=== PATIENT | female | born 1940 | race Hispanic/Latino ===

== ENCOUNTER 2022-05-01 10:09 | Inpatient (IN) | payer MEDICARE, MEDICAID ==
--- NOTE | 2022-05-01 11:55 | Emergency Department Report ---
ED General Adult HPI - General Chief complaint: Medical Clearance Stated complaint: DIALYSIS PORT DISLOGED PUI?: No Time Seen by Provider: 05/01/22 11:32 Source: family (2 sons and 1 daughter), EMS Mode of arrival: Stretcher Limitations: Other - History of Present Illness Initial comments: This is a pleasant 81-year-old female with history of dementia diabetes hypertension hyperlipidemia; who is on dialysis with dialysis catheter. Patient came in today by EMS with concerns of dialysis port dislodged. According to the family the patient likely pulled the dialysis to pull herself out of the chest. Family state that the patient is more confused than for her baseline. Per family, patient still produce urine. Has been a dialysis for the past 2 years. History of bilateral AV fistula clots in the past and previously on a nticoagulation but not currently; due to that, patient is now dialysis port dependent. Patient gets dialysis Friday, , and Friday. Unable to obtain review of systems due to patient confusion of the patient. Patient does not know what year or where she is at. Patient is knows her first name and last name. - Related Data Allergies Allergy/AdvReac Type Severity Reaction Status Date / Time No Known Allergies Allergy Verified 05/01/22 10:26 ED Review of Systems ROS: Stated complaint: DIALYSIS PORT DISLOGED Other details as noted in HPI Comment: Unobtainable due to pts medical conditions ED Past Medical Hx - Past Medical History Hx Hypertension: Yes Hx Diabetes: Yes ED Physical Exam - General Limitations: Altered Mental Status, Other General appearance: alert, in no apparent distress - Head Head exam: Present: atraumatic, normocephalic, normal inspection - Eye Eye exam: Present: normal appearance, PERRL, EOMI Pupils: Present: normal accommodation - ENT ENT exam: Present: normal exam, mucous membranes dry - Neck Neck exam: Present: normal inspection, full ROM - Respiratory Respiratory exam: Present: normal lung sounds bilaterally - Cardiovascular Cardiovascular Exam: Present: regular rate, normal rhythm, normal heart sounds - GI/Abdominal GI/Abdominal exam: Present: soft - Extremities Exam Extremities exam: Present: normal inspection, full ROM - Back Exam Back exam: Present: normal inspection, full ROM - Neurological Exam Neurological exam: Present: altered, CN II-XII intact - Skin Skin exam: Present: intact, normal color ED Course Vital Signs 05/01/22 10:21 Temperature 97.9 F Pulse Rate 82 Respiratory 14 Rate Blood Pressure 136/64 [Left] O2 Sat by Pulse 99 Oximetry - Reevaluation(s) Reevaluation #1: 05/01/22 13:30 EKG AT 1312: SINUS RHYTHM AT 91BPM; PVC W/ PROLONG TX INTERVAL. NO ST ELEVATION OR DEPRESSION; NO WELLEN WAVES. 05/01/22 15:52 Fecal occult blood test performed; the stool does not appear to be dark. Patient's anemia is likely secondary to anemia of chronic disease given the noemi ent is a dialysis patient. I will type and cross patient 1 unit and transfuse. As of now we are still pending urinalysis and also CT scan to ensure that there are no infectious etiology given patient is pleasantly altered. 05/01/22 18:[address] NEW (VASCULAR) WHO IS AWARE OF PATIENT AND WILL PUT DIALYSIS CATHETER TOMORROW. ED Medical Decision Making - Lab Data Result diagrams: 05/01/22 14:00 05/01/22 14:00 Critical care attestation.: If time is entered above; I have spent that time in minutes in the direct care of this critically ill patient, excluding procedure time. ED Disposition Clinical Impression: Anemia of chronic disease, Normocytic anemia, not due to blood loss, Complications, dialysis, catheter, mechanical, Urinary tract infection, Altered mental status, unspecified Disposition: ADMITTED INPATIENT Is pt being admited?: Yes Does the pt Need Aspirin: No Condition: Stable Referrals: MONA SHAH MD [Primary Care Provider] - 3-5 Days Time of Disposition: 18:30
--- NOTE | 2022-05-01 12:45 | Cat Scan Report ---
CT head/brain wo con INDICATION: ams. TECHNIQUE: CT head. All CT scans at this location are performed using CT dose reduction for ALARA by means of automated exposure control. COMPARISON: None. 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 Periventricular and centrum semiovale white matter hypoattenuation most consistent with sequela of chronic microvascular disease. Sarkar-white matter differentiation is maintained. No intracranial hemorrhage. No extra axial collection. No hydrocephalus. No herniation. Sinuses: Paranasal sinuses and mastoid air cells are essentially clear. Orbits: Globes are intact. Calvarium: No acute fracture. IMPRESSION: 1. No acute intracranial abnormality. Signer Name: Konrad Reed MD Signed: 05/01/2022 12:41 PM Workstation Name: [email or web address]
--- NOTE | 2022-05-01 13:15 | XRay Report ---
XR chest 1V ap INDICATION / CLINICAL INFORMATION: dialysis cather came off; patient altered. COMPARISON: None available. FINDINGS: SUPPORT DEVICES: None. HEART /PULMONARY VASCULATURE: No significant abnormality. LUNGS / PLEURA: Left basilar/retrocardiac opacity, may reflect atelectasis or infiltrate. No sizable pleural effusion. No pneumothorax. ADDITIONAL FINDINGS: No significant additional findings. IMPRESSION: Left basilar opacity, may reflect atelectasis or pneumonia. Signer Name: Ranjit Rossi MD Signed: 05/01/2022 1:11 PM Workstation Name: [id number]
[2022-05-01 14:33] LABS: Hemoglobin 6.3 gm/dl (10.1-14.3); Mean Corpuscular HGB Conc 33 % (30-34); Mean Corpuscular Volume 95 fl (79-97); Red Blood Count 2.01 M/mm3 (3.65-5.03)
[2022-05-01 14:35] LABS: Hematocrit 19.1 % (30.3-42.9); Platelet Count 71 K/mm3 (140-440); Red Cell Distribution Width 22.2 % (13.2-15.2)
[2022-05-01 14:46] LABS: Albumin 1.9 g/dL (3.9-5); BUN/Creatinine Ratio 5; Blood Urea Nitrogen 10 mg/dL (7-17); Calcium 8.3 mg/dL (8.4-10.2); Hemolysis Index 8
[2022-05-01 14:51] LABS: Alanine Aminotransferase < 5 units/L (7-56)
[2022-05-01 17:05] LABS: Amorphous Crystals,Urine Few; Bacteria,Urine 4+ /HPF (Negative); Hyaline Casts,Urine 2 /LPF
[2022-05-01 17:24] LABS: Color,Urine Yellow (Yellow)
--- NOTE | 2022-05-01 17:32 | Cat Scan Report ---
CT CHEST WITHOUT CONTRAST INDICATION / CLINICAL INFORMATION: LEFT BASILAR OPACITY, atelectasis VS PNA. TECHNIQUE: Axial CT images were obtained through the chest without contrast. All CT scans at this location are p erformed using CT dose reduction for ALARA by means of automated exposure control. COMPARISON: Same-day chest radiograph FINDINGS: THORACIC AORTA: Mild atherosclerotic calcification without acute abnormality. CORONARY ARTERY CALCIFICATION: Mild-moderate coronary artery calcifications. HEART: Mild cardiac enlargement. Trace pericardial effusion. MEDIASTINUM / PETTY: Mild diffuse mural thickening of the esophagus. LUNGS/PLEURA: Trace bibasilar pleural effusions. There are streaky airspace opacities within the left lower lobe and lingula, favored to reflect volume loss/scarring. No focal consolidative pneumonia. 5 mm right middle lobe nodule (series 2 image 64). No pneumothorax. ADDITIONAL CHEST FINDINGS: None. UPPER ABDOMEN: No acute findings. Multiple renal cysts and probable hyperdense cysts, incompletely ch aracterized. Gallbladder is surgically absent. SKELETAL SYSTEM: No acute abnormality. IMPRESSION: 1. Streaky airspace opacities of the left lower lobe and lingula, favored to reflect volume loss or s carring. No focal consolidative pneumonia. 2. Trace bibasilar pleural effusions. Component of mild CHF/volume overload suspected. 3. 5 mm right middle lobe nodule. If patient is high risk, consider further evaluation with CT in one year. 4. Mild diffuse mural thickening of the esophagus, may reflect esophagitis. Signer Name: Ranjit Rossi MD Signed: 05/01/2022 5:27 PM Workstation Name: [id number]
--- NOTE | 2022-05-01 18:19 | History and Physical Report ---
History of Present Illness Chief complaint: She probably pulled her catheter out History of present illness: 81 YO Female with Vascular Dementia, Cerebral Atherosclerosis, HTN, HLD, ESRD on HD(T,R,Sa) presents to ED for evaluation. Patient is confused with diminished cognition at the time my evaluation is unable to provide history. Patient history provided by EMS staff, ED staff, as well as patient family was at [facility] during exam and interview. As per family patient has experienced increased confusion and weakness and increased bedbound status over the past 1 month. Patient family noticed that patient dialysis catheter had been dislodged today. EMS was notified and upon arrival the patient was found to be in distress and subsequent transported to [facility] for further care and evaluation of the aforementioned symptoms. The patient was seen and evaluated in the emergency department. All lab and imaging studies reviewed. Patient was found to have UTI complicated by metabolic encephalopathy, end-stage renal disease in need of dialysis, as well as dislodgment of dialysis catheter. Vascular surgery team notified in ED. patient has diminished cognition but has a positive gag reflex and is able to protect her airway without difficulty. No prior admission for review. No medication listed at time of admission for reconciliation. Advanced care planning conducted in ED. Patient family denies fever, chills, chest pain, palpitation, productive cough, skin rash, recent contact, known exposure to COVID-19. Past History Past Medical History: GERD, hypertension, hyperlipidemia Past Surgical History: Other (Dialysis access) Social history: single. denies: smoking, alcohol abuse, prescription drug abuse Family history: diabetes, hypertension Medications and Allergies Allergies Allergy/AdvReac Type Severity Reaction Status Date / Time No Known Allergies Allergy Verified 05/01/22 10:26 Review of Systems ROS unobtainable: due to mental status (Hospitalist working on the after) Exam - Constitutional Vitals: Temp Pulse Resp BP Pulse Ox 97.9 F 82 14 136/64 99 05/01/22 10:21 05/01/22 10:21 05/01/22 10:21 05/01/22 10:21 05/01/22 10:21 General appearance: Present: mild distress, cachectic - EENT Eyes: Present: PERRL ENT: clear oral mucosa, hearing decreased - Neck Neck: Present: supple - Respiratory Respiratory effort: normal Respiratory: bilateral: diminished - Cardiovascular Heart Sounds: Present: S1 & S2. Absent: rub, click - Extremities Extremities: no ischemia Extremity abnormal: edema Peripheral Pulses: within normal limits - Abdominal General gastrointestinal: Present: soft, non-tender, non-distended, normal bowel sounds Female genitourinary: Present: normal - Integumentary Integumentary: Present: dry, clammy - Musculoskeletal Musculoskeletal: generalized weakness - Psychiatric Psychiatric: no appropriate mood/affect - Neurologic Neurologic: CNII-XII intact, no focal deficits, moves all extremities, no gait normal Results - Labs CBC & Chem 7: 05/01/22 14:00 05/01/22 14:00 Labs: Abnormal lab results 05/01/22 05/01/22 05/01/22 Range/Units 14:00 14:00 Unknown WBC 1.5 L* (4.5-11.0) K/mm3 RBC 2.01 L (3.65-5.03) M/mm3 Hgb 6.3 L (10.1-14.3) gm/dl Hct 19.1 L* (30.3-42.9) % RDW 22.2 H (13.2-15.2) % Plt Count 71 L (140-440) K/mm3 Sodium 136 L (137-145) mmol/L Potassium 3.4 L (3.6-5.0) mmol/L Creatinine 2.2 H (0.6-1.2) mg/dL Calcium 8.3 L (8.4-10.2) mg/dL ALT < 5 L (7-56) units/L Total Protein 5.1 L (6.3-8.2) g/dL Albumin 1.9 L (3.9-5) g/dL Urine WBC (Auto) 112.0 H (0.0-6.0) /HPF Assessment and Plan - Patient Problems (1) UTI (urinary tract infection) Current Visit: Yes Status: Acute Qualifiers: Encounter type: initial encounter Plan to address problem: CBC, IV antibiotic therapy, urinalysis. (2) Metabolic encephalopathy Current Visit: Yes Status: Acute Plan to address problem: Treat UTI, supportive care, dialysis as per renal team. (3) End stage renal disease Current Visit: Yes Status: Acute (4) Complications, dialysis, catheter, mechanical Current Visit: Yes Status: Acute Qualifiers: Encounter type: initial encounter Qualified Code(s): T82.49XA - Other complication of vascular dialysis catheter, initial encounter Plan to address problem: Vascular surgery team consulted. Patient pending surgical intervention in a.m. (5) Vascular dementia Current Visit: Yes Status: Acute Qualifiers: Dementia behavioral disturbance: without behavioral disturbance Qualified Code(s): F01.50 - Vascular dementia without behavioral disturbance Plan to address problem: Verbal prompting, verbal redirection, benzodiazepine therapy as clinically indicated. (6) Cerebral atherosclerosis Current Visit: Yes Status: Acute Plan to address problem: Risk factor reduction, antiplatelet therapy as clinically indicated. (7) Malnutrition Current Visit: Yes Status: Acute Qualifiers: Protein-calorie malnutrition severity: moderate Plan to address problem: Increase protein intake when awake and alert only, dietary supplementation. (8) Debility Current Visit: Yes Status: Acute Plan to address problem: Fall precautions, supportive care. (9) DVT prophylaxis Current Visit: Yes Status: Acute Plan to address problem: SCD to bilateral lower extremities while in bed (10) Advance care planning Current Visit: Yes Status: Acute Plan to address problem: Disease education conducted, care plan discussed, diagnoses discussed, prognosis discussed, patient is full code. Patient family knowledge understanding and agreed with care plan, +30 minutes. (11) Preventative health care Current Visit: Yes Status: Acute Plan to address problem: Patient family counseled regarding home safety precautions, risk factor reduction, outpatient follow-up with primary care physician for all age and risk factor appropriate screening test. +30 minutes.
[2022-05-01] MEDS ORDERED: ALBUTEROL 2.5 MG/3 ML NEBU IH PRN (18:21)
[2022-05-01] MEDS ORDERED: HYDROmorphone 0.5 MG/0.5 ML INJ IV PRN (18:21)
[2022-05-01] MEDS ORDERED: oxyCODONE /ACETAMINOPHEN 5-325MG TAB PO PRN (18:21)
[2022-05-01] MEDS ORDERED: ACETAMINOPHEN 325 MG TAB PO PRN (18:21)
[2022-05-01] MEDS ORDERED: ONDANSETRON 4 MG/2 ML INJ IV PRN (18:21)
[2022-05-01] MEDS: cefTRIAXone/NS 1 GM/50 ML 1 GM/50 ML BAG IV SCH (20:11)
[2022-05-02] MEDS ORDERED: SODIUM CHLORIDE 0.9% 500 ML 500 ML ONE (08:22)
[2022-05-02] MEDS ORDERED: HEPARIN/NS 5000 UNIT/500ML 500 ML IR ONE (08:48)
[2022-05-02] MEDS ORDERED: HEPARIN 10,000 UNITS/10 ML VIAL ONE (08:48)
[2022-05-02] MEDS ORDERED: LIDOCAINE (2%) 20 MG/1 ML VIAL 20 ML MDV INFILTRATI ONE (08:48)
--- NOTE | 2022-05-02 08:49 | Consultation ---
History of Present Illness - Reason for Consult Consult date: 05/02/22 Dialysis catheter pulled out - History of Present Illness Patient with a history of end-stage renal disease who is on maintenance dialysis. Patient has a history of prior catheter placement and most recently had a right tunneled chest wall catheter placed at [facility] 1 week ago. Per son, this was then pulled out by the patient. Patient presents to the ER with no catheter. Patient with dementia at baseline. Patient is also anemic. Past History Past Medical History: GERD, hypertension, hyperlipidemia Past Surgical History: Other (Dialysis access) Social history: single. denies: smoking, alcohol abuse, prescription drug abuse Family history: diabetes, hypertension Medications and Allergies Allergies Allergy/AdvReac Type Severity Reaction Status Date / Time No Known Allergies Allergy Verified 05/01/22 10:26 Active Meds: Active Medications Acetaminophen (Acetaminophen 325 Mg Tab) 650 mg PO Q4H PRN PRN Reason: Pain MILD(1-3)/Fever >100.5/FRIAS Albuterol (Albuterol 2.5 Mg/3 Ml Nebu) 2.5 mg IH Q4HRT PRN PRN Reason: Shortness Of Breath Hydromorphone HCl (Hydromorphone 0.5 Mg/0.5 Ml Inj) 0.5 mg IV Q13H PRN PRN Reason: Pain , Severe (7-10) Ceftriaxone Sodium (Rocephin/Ns 1 Gm/50 Ml) 1 gm in 50 mls @ 100 mls/hr IV Q24H JARETH; Protocol Last Admin: 05/01/22 20:11 Dose: 100 mls/hr Ondansetron HCl (Ondansetron 4 Mg/2 Ml Inj) 4 mg IV Q8H PRN PRN Reason: Nausea And Vomiting Oxycodone/Acetaminophen (Oxycodone /Acetaminophen 5-325mg Tab) 1 tab PO Q16H PRN PRN Reason: Pain, Moderate (4-6) Sodium Chloride (Sodium Chloride 0.9% 10 Ml Flush Syringe) [address] [facility] Last Admin: 05/02/22 01:32 Dose: 10 ml Sodium Chloride (Sodium Chloride 0.9% 10 Ml Flush Syringe) 10 ml IV PRN PRN PRN Reason: LINE FLUSH Review of Systems ROS unobtainable: due to mental status Exam - Constitutional Vitals: Temp Pulse Resp BP Pulse Ox 98.8 F 89 22 153/71 97 05/02/22 06:22 05/02/22 06:22 05/02/22 06:22 05/02/22 06:22 05/02/22 06:22 General appearance: Present: other (Demented) - EENT ENT: hearing intact - Neck Neck: Present: normal ROM - Respiratory Respiratory effort: normal - Abdominal Female genitourinary: Present: deferred - Rectal Rectal Exam: deferred - Musculoskeletal Musculoskeletal: other (Right chest wall catheter insertion site with scar) - Psychiatric Psychiatric: cooperative (Demented) Results - Labs CBC & Chem 7: 05/01/22 14:00 05/01/22 14:00 Labs: Abnormal lab results 05/01/22 05/01/22 05/01/22 Range/Units 14:00 14:00 Unknown WBC 1.5 L* (4.5-11.0) K/mm3 RBC 2.01 L (3.65-5.03) M/mm3 Hgb 6.3 L (10.1-14.3) gm/dl Hct 19.1 L* (30.3-42.9) % RDW 22.2 H (13.2-15.2) % Plt Count 71 L (140-440) K/mm3 Sodium 136 L (137-145) mmol/L Potassium 3.4 L (3.6-5.0) mmol/L Creatinine 2.2 H (0.6-1.2) mg/dL Calcium 8.3 L (8.4-10.2) mg/dL ALT < 5 L (7-56) units/L Total Protein 5.1 L (6.3-8.2) g/dL Albumin 1.9 L (3.9-5) g/dL Urine WBC (Auto) 112.0 H (0.0-6.0) /HPF Assessment and Plan Patient will be taken to the Collection Specialist for placement of dialysis catheter today. Per ER notes, patient with planned transfusion.
[2022-05-02] MEDS ORDERED: MIDAZOLAM 2 MG/2 ML INJ ONE (08:54)
--- NOTE | 2022-05-02 09:26 | Operative Report ---
Operative Report Operative Report: Exam: Ultrasound and fluoroscopic guided placement of tunneled hemodialysis catheter Clinical indication: Patient with a history of end-stage renal disease who is dialysis dependent. Most recent catheter was right chest wall 1 week ago which was pulled out by patient. Date: 05/02/2022 Procedure: Following an explanation of the risk, benefits and alternatives; written informed consent was obtained from the patient's son. Patient has baseline dementia. The patient was brought to the angiographic suite and placed in supine position on the examination table. Initial ultrasound evaluation of the neck demonstrated a patent internal jugular vein proximally with some mural thrombus as it extended distally. The patient's right chest wall and neck were prepped and draped in the usual sterile fashion. 2% lidocaine was used for anesthesia. Under ultrasound guidance, a 7 cm 21-gauge needle was advanced into the right internal jugular vein. A 0.018 guidewire was advanced centrally and without resistance. The needle was removed and a micro sheath inserted 2 to 3 cm into the vein. Contrast was injected. This demonstrates that the internal jugular vein is patent proximally with a tapered smooth narrowing distally which occludes. A 0.035 Glidewire was then advanced through the micro sheath and manipulated through the occluded internal jugular vein on the right. The guidewire was manipulated into the right atrium. Micro sheath was then advanced over the guidewire into the right atrium. Contrast was injected which demonstrates appropriate positioning with the prompt opacification of the right atrium and pulmonary outflow vessels. The guidewire was reinserted and the micro sheath exchanged for a vertebral catheter. With the vertebral catheter, the guidewire was then advanced in to the IVC for anchoring. An appropriate catheter exit site was chosen along the right lateral chest wall. Additional lidocaine was used for anesthesia at the catheter exit site and along the tunnel tract. A Bard 19 cm glidepath tunneled hemodialysis catheter was then tunneled antegrade from the catheter exit site to the venotomy site. Following serial dilation over the guidewire under fluoroscopy, a 15 Ivorian peel-away sheath was advanced over the guidewire centrally. The guidewire and trocar were removed. The catheter was inserted through the peel-away sheath with the tip of the catheter in the SVC. Both ports flushed and aspirated easily and were then locked with appropriate volumes of heparin. The venotomy was approximated using 3-0 Vicryl suture and Dermabond. 2-0 Ethilon was used to approximate the catheter exit site and to anchor the catheter. Dermabond was then also applied to the catheter exit site. Sterile dressings were applied. The patient tolerated the procedure well. The patient's O2 saturation fluctuated secondary to most likely positioning of the oxygen sensor on the patient's finger as the patient remained conversant throughout the entire case. At the conclusion of the case with repositioning of the oxygen saturation ration monitor, the patient's oxygen saturation is 100%. No sedation was utilized secondary to patient's altered mental status. Versed was used for anxiolysis. Impression: Ultrasound and fluoroscopic guided placement of 19 cm tunneled hemodialysis catheter via the right internal jugular vein.
[2022-05-02] MEDS ORDERED: SODIUM CHLORIDE 0.9% 500 ML 500 ML IV NR (10:15)
[2022-05-02] MEDS ORDERED: SODIUM CHLORIDE 0.9% 100 ML IV PRN (12:52)
[2022-05-02 15:08] LABS: Calcium 8.3 mg/dL (8.4-10.2)
[2022-05-02 15:18] LABS: Hepatitis B Surface Antigen Non-Reactive (Negative); Hepatitis C Virus Antibody Non-Reactive (NonReactive)
--- NOTE | 2022-05-02 16:24 | Progress Note ---
Assessment and Plan This is a 81-year-old woman with end-stage renal disease on hemodialysis TTS, hypertension, hyperlipidemia and vascular dementia who was brought in by EMS due to 1 month history of increased confusion and weakness. Family also reported 1 day history of HD catheter dislodgment. Nephrology was consulted for ESRD management. Patient was admitted for further evaluation and management. 05/02: Status post PermCath placed today, patient getting hemodialysis, patient was very agitated and placed on restraint. Continue to follow clinically, repeat labs in the morning. Family requested placement, discussed with case management. Assessment and plan -- UTI (urinary tract infection) IV antibiotic therapy, urinalysis. -- Acute Metabolic encephalopathy with underlying dementia and delirium Treat UTI, supportive care, dialysis as per renal team, supportive care Restraint as needed -- End stage renal disease Nephrology consulted, HD per nephrology, monitor BMP --Complications, dialysis, catheter, mechanical Vascular surgery team consulted. Status post new PermCath placement -- Vascular dementia Verbal prompting, verbal redirection, benzodiazepine therapy as clinically indicated. -- Cerebral atherosclerosis Risk factor reduction, antiplatelet therapy as clinically indicated. -- Malnutrition, moderate Increase protein intake when awake and alert only, dietary supplementation. --Chronic debility Fall precautions, supportive care. Family requested intermediate placement -- DVT prophylaxis SCD to bilateral lower extremities while in bed -- Full CODE STATUS Subjective Date of service: 05/02/22 Interval history: Patient seen and examined. Medical records and medication list reviewed. No acute event overnight noted by the RN. Patient very confused and agitated Status post new permacath placed today, getting HD now Discussed plan of care at bedside with patient's RN. Objective - Constitutional Vitals: Vital Signs - 12hr 05/02/22 05/02/22 05/02/22 04:30 04:40 04:50 Temperature Pulse Rate 83 85 79 Respiratory 21 20 20 Rate Blood Pressure 178/104 178/104 178/104 O2 Sat by Pulse 97 96 96 Oximetry 05/02/22 05/02/22 05/02/22 05:00 05:10 05:20 Temperature Pulse Rate 76 78 78 Respiratory 20 20 21 Rate Blood Pressure 178/104 178/104 178/104 O2 Sat by Pulse 98 99 98 Oximetry 05/02/22 05/02/22 05/02/22 05:30 05:40 05:50 Temperature Pulse Rate 88 90 83 Respiratory 22 25 H 22 Rate Blood Pressure 178/104 178/104 178/104 O2 Sat by Pulse 99 97 97 Oximetry 05/02/22 05/02/22 05/02/22 06:22 08:31 11:28 Temperature 98.8 F 98.5 F Pulse Rate 89 58 L Respiratory 22 22 Rate Blood Pressure 153/71 160/59 O2 Sat by Pulse 97 92 97 Oximetry 05/02/22 05/02/22 05/02/22 13:25 13:30 13:45 Temperature 98.3 F Pulse Rate 57 L 57 L 84 Respiratory 16 Rate Blood Pressure 98/74 98/74 162/71 O2 Sat by Pulse Oximetry 05/02/22 05/02/22 05/02/22 14:00 14:15 14:30 Temperature Pulse Rate 89 78 90 Respiratory Rate Blood Pressure 146/74 147/65 132/85 O2 Sat by Pulse Oximetry 05/02/22 05/02/22 05/02/22 14:45 15:00 15:15 Temperature 98.1 F 98.1 F Pulse Rate 87 82 72 Respiratory 16 16 Rate Blood Pressure 128/69 152/78 109/92 O2 Sat by Pulse 98 98 Oximetry 05/02/22 05/02/22 05/02/22 15:30 15:45 16:00 Temperature 98.1 F 98.0 F 98.0 F Pulse Rate 66 83 77 Respiratory 16 16 16 Rate Blood Pressure 123/67 149/88 146/11 O2 Sat by Pulse 98 98 98 Oximetry General appearance: Present: other (Malnourished elderly -[place] female appears to be very confused) - EENT Eyes: no scleral icterus, no conjunctival injection ENT: other (Does not follow command confused) Ears: bilateral: normal - Neck Neck: supple, normal ROM - Respiratory Respiratory effort: normal Respiratory: bilateral: CTA - Cardiovascular Rhythm: regular Heart Sounds: Present: S1 & S2. Absent: gallop, rub Extremities: pulses intact, No edema, normal color - Gastrointestinal General gastrointestinal: Present: soft, non-tender, non-distended, normal bowel sounds - Integumentary Integumentary: clear, warm, dry - Musculoskeletal Musculoskeletal: generalized weakness - Neurologic Neurologic: moves all extremities - Psychiatric Psychiatric: no appropriate mood/affect, no intact judgment & insight, no memory intact - Labs CBC & Chem 7: 05/02/22 23:31 05/05/22 11:01 Labs: Abnormal lab results 05/01/22 05/01/22 05/02/22 Range/Units 18:20 Unknown 14:30 Creatinine 1.4 H (0.6-1.2) mg/dL Glucose 123 H (65-100) mg/dL Calcium 8.3 L (8.4-10.2) mg/dL Urine WBC (Auto) 112.0 H (0.0-6.0) /HPF Crossmatch See Detail
--- NOTE | 2022-05-02 17:38 | Electrocardiograph Report ---
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
--- NOTE | 2022-05-02 20:39 | Consultation ---
History of Present Illness - Reason for Consult Consult date: 05/02/22 end stage renal disease - History of Present Illness This is a 81-year-old woman with end-stage renal disease on hemodialysis TTS, hypertension, hyperlipidemia and vascular dementia who was brought in by EMS due to 1 month history of increased confusion and weakness. Family also reported 1 day history of HD catheter dislodgment. Nephrology was consulted for ESRD management. Patient is altered and history has been obtained from chart. Past History Past Medical History: GERD, hypertension, hyperlipidemia Past Surgical History: Other (Dialysis access) Social history: single. denies: smoking, alcohol abuse, prescription drug abuse Family history: diabetes, hypertension Medications and Allergies Allergies Allergy/AdvReac Type Severity Reaction Status Date / Time morphine AdvReac "TREMBLING" Verified 05/02/22 10:21 Home Medications Medication Instructions Recorded Confirmed Last Taken Type AtorvaSTATin [Lipitor] 40 mg PO QHS 05/02/22 05/02/22 Unknown History Folic Acid [Folvite] 2 mg PO QDAY 05/02/22 05/02/22 Unknown History Metoprolol [Lopressor] 25 mg PO BID 05/02/22 05/02/22 Unknown History Mirtazapine 7.5 mg PO QDAY 05/02/22 05/02/22 Unknown History Parenteral Amino Acid 20% No.1 141 ml IV QDAY 05/02/22 05/02/22 Unknown History [Prosol] Active Meds: Active Medications Acetaminophen (Acetaminophen 325 Mg Tab) 650 mg PO Q4H PRN PRN Reason: Pain MILD(1-3)/Fever >100.5/FRIAS Albuterol (Albuterol 2.5 Mg/3 Ml Nebu) 2.5 mg IH Q4HRT PRN PRN Reason: Shortness Of Breath Hydromorphone HCl (Hydromorphone 0.5 Mg/0.5 Ml Inj) 0.5 mg IV Q13H PRN PRN Reason: Pain , Severe (7-10) Ceftriaxone Sodium (Rocephin/Ns 1 Gm/50 Ml) 1 gm in 50 mls @ 100 mls/hr IV Q24H JARETH; Protocol Last Admin: 05/01/22 20:11 Dose: 100 mls/hr Sodium Chloride (Nacl 0.9% 500 Ml) 500 mls @ 0 mls/hr IV ONCE NR Stop: 05/03/22 10:14 Sodium Chloride (Nacl 0.9%) 100 mls @ 999 mls/hr IV NICOLE PRN PRN Reason: Hypotension Ondansetron HCl (Ondansetron 4 Mg/2 Ml Inj) 4 mg IV Q8H PRN PRN Reason: Nausea And Vomiting Oxycodone/Acetaminophen (Oxycodone /Acetaminophen 5-325mg Tab) 1 tab PO Q16H PRN PRN Reason: Pain, Moderate (4-6) Sodium Chloride (Sodium Chloride 0.9% 10 Ml Flush Syringe) 10 ml IV BID JARETH Last Admin: 05/02/22 01:32 Dose: 10 ml Sodium Chloride (Sodium Chloride 0.9% 10 Ml Flush Syringe) 10 ml IV PRN PRN PRN Reason: LINE FLUSH Review of Systems ROS unobtainable: due to mental status Exam - Vital Signs Vital signs: Vital Signs Temp Pulse Resp BP Pulse Ox 97.9 F 82 14 136/64 99 05/01/22 10:21 05/01/22 10:21 05/01/22 10:21 05/01/22 10:21 05/01/22 10:21 - Physical Exam Narrative exam: Constitutional: no acute distress Head: NC/AT Neck: supple Lungs: clear to auscultation CV: RRR Abdomen: soft, non-tender, bowel sounds present Back: nontender Extremities: no edema, pulses WNL Skin: intact Neuro: Confused Results - Lab Results 05/01/22 14:00 05/02/22 14:30 Most recent lab results Calcium 8.3 mg/dL (8.4-10.2) L 05/02/22 14:30 Assessment and Plan End-stage renal disease on hemodialysis Anemia of CKD Hyperphosphatemia Hyperparathyroidism Status post PermCath placement by IR HD today for clearance Unclear if she makes any urine, will check 24-hour creatinine clearance if she does make urine Check P and PTH Transfuse for hemoglobin less than 7 Epogen with HD as needed Renally dose medications ESRD diet with 1.2-1. 4 g/kg/d protein intake
[2022-05-02] MEDS: cefTRIAXone/NS 1 GM/50 ML 1 GM/50 ML BAG IV SCH (23:02)
[2022-05-03] LABS: Hematocrit 24.9 % (30.3-42.9); Hemoglobin 8.3 gm/dl (10.1-14.3); Mean Corpuscular HGB Conc 33 % (30-34); Mean Corpuscular Volume 94 fl (79-97); Platelet Count 131 K/mm3 (140-440); Red Blood Count 2.66 M/mm3 (3.65-5.03); Red Cell Distribution Width 19.7 % (13.2-15.2)
[2022-05-03 01:58] LABS: Anisocytosis 1+; Basophils % (Manual) 0 % (0.0-1.8); Hypochromasia 2+; Total Cells Counted 100
[2022-05-03 01:59] LABS: Ovalocytes Few; Platelet Estimate Cons; Poikilocytosis 1+; Target Cells Rare
[2022-05-03] MEDS ORDERED: NON-FORMULARY EACH (Mirtazapine [Mirtazapine] 7.5 MG Tablet) PO SCH (10:00)
[2022-05-03] MEDS: METOPROLOL TARTRATE 25 MG TAB PO SCH ×2 (12:30→21:55)
[2022-05-03] MEDS: FOLIC ACID 1 MG TAB PO SCH (12:30)
--- NOTE | 2022-05-03 13:07 | Progress Note ---
Assessment and Plan This is a 81-year-old woman with end-stage renal disease on hemodialysis TTS, hypertension, hyperlipidemia and vascular dementia who was brought in by EMS due to 1 month history of increased confusion and weakness. Family also reported 1 day history of HD catheter dislodgment. Nephrology was consulted for ESRD management. Patient was admitted for further evaluation and management. 05/02: Status post PermCath placed today, patient getting hemodialysis, patient was very agitated and placed on restraint. Continue to follow clinically, repeat labs in the morning. Family requested placement, discussed with case management. 05/03: Discussed with family at the bedside, patient remains very confused and agitated, placed on restraint. We will also add Seroquel and as needed Haldol to relieve anxiety. Family requested placement -referral has sent out by case management. We will continue to follow Assessment and plan -- UTI (urinary tract infection) IV antibiotic therapy, urinalysis. -- Acute Metabolic encephalopathy with underlying dementia and delirium Treat UTI, supportive care, dialysis as per renal team, supportive care Restraint as needed. Placed on Seroquel and as needed Haldol -- End stage renal disease Nephrology consulted, HD per nephrology, monitor BMP --Complications, dialysis, catheter, mechanical Vascular surgery team consulted. Status post new PermCath placement -- Vascular dementia Verbal prompting, verbal redirection, benzodiazepine therapy as clinically in dicated. -- Cerebral atherosclerosis Risk factor reduction, antiplatelet therapy as clinically indicated. -- Malnutrition, moderate Increase protein intake when awake and alert only, dietary supplementation. --Chronic debility Fall precautions, supportive care. Family requested half-way placement -- DVT prophylaxis SCD to bilateral lower extremities while in bed -- Full CODE STATUS Subjective Date of service: 05/03/22 Interval history: Patient seen and examined. Medical records and medication list reviewed. No acute event overnight noted by the RN. Patient remains very confused and agitated and requiring restraints Updated plan of care with family at the bedside Discussed plan of care at bedside with patient's RN. Objective - Exam Narrative Exam: General appearance: Present: other (Malnourished elderly -Stateless female appears to be very confused) - EENT Eyes: no scleral icterus, no conjunctival injection ENT: other (Does not follow command confused) Ears: bilateral: normal - Neck Neck: supple, normal ROM - Respiratory Respiratory effort: normal Respiratory: bilateral: CTA - Cardiovascular Rhythm: regular Heart Sounds: Present: S1 & S2. Absent: gallop, rub Extremities: pulses intact, No edema, normal color - Gastrointestinal General gastrointestinal: Present: soft, non-tender, non-distended, normal bowel sounds - Integumentary Integumentary: clear, warm, dry - Musculoskeletal Musculoskeletal: generalized weakness - Neurologic Neurologic: moves all extremities - Psychiatric Psychiatric: no appropriate mood/affect, no intact judgment & insight, no memory intact - Constitutional Vitals: Vital Signs - 12hr 05/03/22 05/03/22 05/03/22 04:30 08:00 10:00 Temperature 98.5 F Pulse Rate 103 H Respiratory 16 Rate Blood Pressure 176/66 O2 Sat by Pulse 97 95 98 Oximetry 05/03/22 11:44 Temperature 98.9 F Pulse Rate 89 Respiratory 18 Rate Blood Pressure 125/66 O2 Sat by Pulse 97 Oximetry - Labs CBC & Chem 7: 05/02/22 23:31 05/05/22 11:01 Labs: Abnormal lab results 05/01/22 05/02/22 05/02/22 Range/Units 18:20 14:30 23:31 WBC 1.6 L* (4.5-11.0) K/mm3 RBC 2.66 L (3.65-5.03) M/mm3 Hgb 8.3 L (10.1-14.3) gm/dl Hct 24.9 L (30.3-42.9) % RDW 19.7 H (13.2-15.2) % Plt Count 131 L (140-440) K/mm3 Eosinophils % (Manual) 5.0 H (0.0-4.3) % Seg Neutrophils # Man 0.9 L (1.8-7.7) K/mm3 Lymphocytes # (Manual) 0.5 L (1.2-5.4) K/mm3 Creatinine 1.4 H (0.6-1.2) mg/dL Glucose 123 H (65-100) mg/dL Calcium 8.3 L (8.4-10.2) mg/dL Phosphorus (2.5-4.5) mg/dL PTH Intact (15-65) pg/mL Crossmatch See Detail 05/02/22 05/02/22 Range/Units 23:31 23:31 WBC (4.5-11.0) K/mm3 RBC (3.65-5.03) M/mm3 Hgb (10.1-14.3) gm/dl Hct (30.3-42.9) % RDW (13.2-15.2) % Plt Count (140-440) K/mm3 Eosinophils % (Manual) (0.0-4.3) % Seg Neutrophils # Man (1.8-7.7) K/mm3 Lymphocytes # (Manual) (1.2-5.4) K/mm3 Creatinine (0.6-1.2) mg/dL Glucose (65-100) mg/dL Calcium (8.4-10.2) mg/dL Phosphorus 1.60 L (2.5-4.5) mg/dL PTH Intact 304.4 H (15-65) pg/mL Crossmatch
--- NOTE | 2022-05-03 18:06 | Progress Note ---
Assessment and Plan End-stage renal disease on hemodialysis Anemia of CKD Hypophosphatemia Hyperparathyroidism Status post PermCath placement by IR 05/04 Continue HD TTS Check 24-hour creatinine clearance, order placed No indication for binders Transfuse for hemoglobin less than 7 Epogen with HD as needed Renally dose medications ESRD diet with 1.2-1. 4 g/kg/d protein intake Subjective Date of service: 05/03/22 Principal diagnosis: Catheter malfunction Interval history: Resting in bed Vitals, labs and I/os reviewed Interdisciplinary notes and consults reviewed Objective - Exam Narrative Exam: Constitutional: no acute distress Head: NC/AT Neck: supple Lungs: clear to auscultation CV: RRR Abdomen: soft, non-tender, bowel sounds present Back: nontender Extremities: no edema, pulses WNL Skin: intact Neuro: Confused - Vital Signs Vital signs: Vital Signs - 12hr 05/03/22 05/03/22 05/03/22 08:00 10:00 11:44 Temperature 98.9 F Pulse Rate 89 Respiratory 18 Rate Blood Pressure 125/66 O2 Sat by Pulse 95 98 97 Oximetry - Lab 05/02/22 23:31 05/03/22 13:15 Most recent lab results Calcium 9.0 mg/dL (8.4-10.2) 05/03/22 13:15 Phosphorus 1.60 mg/dL (2.5-4.5) L 05/02/22 23:31 Magnesium 1.60 mg/dL (1.7-2.3) L 05/03/22 13:15 Medications & Allergies - Medications Allergies/Adverse Reactions: Allergies morphine Adverse Reaction (Verified 05/02/22 10:21) "TREMBLING" Home Medications: Home Medications Medication Instructions Recorded Confirmed Last Taken Type AtorvaSTATin [Lipitor] 40 mg PO QHS 05/02/22 05/02/22 Unknown History Folic Acid [Folvite] 2 mg PO QDAY 05/02/22 05/02/22 Unknown History Metoprolol [Lopressor] 25 mg PO BID 05/02/22 05/02/22 Unknown History Mirtazapine 7.5 mg PO QDAY 05/02/22 05/02/22 Unknown History Parenteral Amino Acid 20% No.1 141 ml IV QDAY 05/02/22 05/02/22 Unknown History [Prosol] Active Medications: Generic Name Dose Route Start Last Admin Trade Name Freq PRN Reason Stop Dose Admin Acetaminophen 650 mg 05/01/22 18:21 Acetaminophen 325 Mg Tab PO Q4H PRN Pain MILD(1-3)/Fever >100.5/FRIAS Albuterol 2.5 mg 05/01/22 18:21 Albuterol 2.5 Mg/3 Ml Nebu IH Q4HRT PRN Shortness Of Breath Atorvastatin Calcium 40 mg 05/03/22 22:00 Atorvastatin 40 Mg Tab PO QHS JARETH Folic Acid 2 mg 05/03/22 10:00 05/03/22 12:30 Folic Acid 1 Mg Tab PO 2 mg QDAY JARETH Administration Hydromorphone HCl 0.5 mg 05/01/22 18:21 Hydromorphone 0.5 Mg/0.5 Ml Inj IV Q13H PRN Pain , Severe (7-10) Ceftriaxone Sodium 1 gm in 50 mls @ 100 mls/hr 05/01/22 20:00 05/02/22 23:02 Rocephin/Ns 1 Gm/50 Ml IV 100 mls/hr Q24H JARETH Administration Protocol Sodium Chloride 100 mls @ 999 mls/hr 05/02/22 12:52 Nacl 0.9% IV NICOLE PRN Hypotension Metoprolol Tartrate 25 mg 05/03/22 10:00 05/03/22 12:30 Metoprolol Tartrate 25 Mg Tab PO 25 mg BID JARETH Administration Mirtazapine 7.5 mg 05/03/22 22:00 Mirtazapine 15 Mg Tab PO QHS [facility] Ondansetron HCl 4 mg 05/01/22 18:21 Ondansetron 4 Mg/2 Ml Inj IV Q8H PRN Nausea And Vomiting Oxycodone/Acetaminophen 1 tab 05/01/22 18:21 Oxycodone /Acetaminophen 5-325mg Tab PO Q16H PRN Pain, Moderate (4-6) Quetiapine Fumarate 25 mg 05/03/22 22:00 Quetiapine 25 Mg Tab PO BID JARETH Sodium Chloride 10 ml 05/01/22 22:00 05/03/22 12:30 Sodium Chloride 0.9% 10 Ml Flush Syringe IV 10 ml BID JARETH Administration Sodium Chloride 10 ml 05/01/22 18:21 Sodium Chloride 0.9% 10 Ml Flush Syringe IV PRN PRN LINE FLUSH
[2022-05-03] MEDS: MIRTAZAPINE 15 MG TAB PO SCH (21:54)
[2022-05-03] MEDS: cefTRIAXone/NS 1 GM/50 ML 1 GM/50 ML BAG IV SCH (21:54)
[2022-05-03] MEDS: QUEtiapine 25 MG TAB PO SCH (21:55)
[2022-05-04] MEDS: QUEtiapine 25 MG TAB PO SCH ×2 (09:53→21:40)
[2022-05-04] MEDS: FOLIC ACID 1 MG TAB PO SCH (09:53)
[2022-05-04] MEDS: METOPROLOL TARTRATE 25 MG TAB PO SCH ×2 (09:53→22:22)
--- NOTE | 2022-05-04 11:36 | Progress Note ---
Assessment and Plan This is a 81-year-old woman with end-stage renal disease on hemodialysis TTS, hypertension, hyperlipidemia and vascular dementia who was brought in by EMS due to 1 month history of increased confusion and weakness. Family also reported 1 day history of HD catheter dislodgment. Nephrology was consulted for ESRD management. Patient was admitted for further evaluation and management. 05/02: Status post PermCath placed today, patient getting hemodialysis, patient was very agitated and placed on restraint. Continue to follow clinically, repeat labs in the morning. Family requested placement, discussed with case management. 05/03: Discussed with family at the bedside, patient remains very confused and agitated, placed on restraint. We will also add Seroquel and as needed Haldol to relieve anxiety. Family requested placement -referral has sent out by case management. We will continue to follow 05/04: Reduce Seroquel dose as patient appears sleepy, continue restraint as needed. Pending placement. Continue to follow BMP. Assessment and plan -- UTI (urinary tract infection) IV antibiotic therapy, urinalysis. -- Acute Metabolic encephalopathy with underlying dementia and delirium Treat UTI, supportive care, dialysis as per renal team, supportive care Restraint as needed. Placed on Seroquel and as needed Haldol -- End stage renal disease Nephrology consulted, HD per nephrology, monitor BMP --Complications, dialysis, catheter, mechanical Vascular surgery team consulted. Status post new PermCath placement -- Vascular dementia Verbal prompting, verbal redirection, benzodiazepine therapy as clinically indicated. -- Cerebral atherosclerosis Risk factor reduction, antiplatelet therapy as clinically indicated. -- Malnutrition, moderate Increase protein intake when awake and alert only, dietary supplementation. --Chronic debility Fall precautions, supportive care. Family requested intermediate placement -- DVT prophylaxis SCD to bilateral lower extremities while in bed -- Full CODE STATUS Subjective Date of service: 05/04/22 Principal diagnosis: Catheter malfunction Interval history: Patient seen and examined. Medical records and medication list reviewed. No acute event overnight noted by the RN. Patient remains very confused but more calm today Pending placement Objective - Exam Narrative Exam: General appearance: Present: other (Malnourished elderly -Lebanese female appears to be very confused) - EENT Eyes: no scleral icterus, no conjunctival injection ENT: other (Does not follow command confused) Ears: bilateral: normal - Neck Neck: supple, normal ROM - Respiratory Respiratory effort: normal Respiratory: bilateral: CTA - Cardiovascular Rhythm: regular Heart Sounds: Present: S1 & S2. Absent: gallop, rub Extremities: pulses intact, No edema, normal color - Gastrointestinal General gastrointestinal: Present: soft, non-tender, non-distended, normal bowel sounds - Integumentary Integumentary: clear, warm, dry - Musculoskeletal Musculoskeletal: generalized weakness - Neurologic Neurologic: moves all extremities - Psychiatric Psychiatric: no appropriate mood/affect, no intact judgment & insight, no memory intact - Constitutional Vitals: Vital Signs - 12hr 05/04/22 05/04/22 05/04/22 05:31 09:50 09:53 Temperature 99.1 F 97.6 F Pulse Rate 65 76 76 Respiratory 19 20 Rate Blood Pressure 152/54 123/61 Blood Pressure 123/61 [Left] O2 Sat by Pulse 97 99 Oximetry - Labs CBC & Chem 7: 05/02/22 23:31 05/05/22 11:01 Labs: Abnormal lab results 05/03/22 Range/Units 13:15 Creatinine 2.1 H (0.6-1.2) mg/dL Magnesium 1.60 L (1.7-2.3) mg/dL
--- NOTE | 2022-05-04 21:22 | Progress Note ---
Assessment and Plan End-stage renal disease on hemodialysis Anemia of CKD Hypophosphatemia Hyperparathyroidism Status post PermCath placement by IR 05/04 Continue HD TTS Check 24-hour creatinine clearance, order placed, not yet collected No indication for binders Transfuse for hemoglobin less than 7 Epogen with HD as needed Renally dose medications ESRD diet with 1.2-1. 4 g/kg/d protein intake Subjective Date of service: 05/04/22 Principal diagnosis: Catheter malfunction Interval history: Resting in bed Vitals, labs and I/os reviewed Interdisciplinary notes and consults reviewed Objective - Exam Narrative Exam: Constitutional: no acute distress Head: NC/AT Neck: supple Lungs: clear to auscultation CV: RRR Abdomen: soft, non-tender, bowel sounds present Back: nontender Extremities: no edema, pulses WNL Skin: intact Neuro: Confused - Vital Signs Vital signs: Vital Signs - 12hr 05/04/22 05/04/22 05/04/22 09:50 09:53 11:50 Temperature 97.6 F 98.3 F Pulse Rate 76 76 64 Respiratory 20 16 Rate Blood Pressure 123/61 123/45 Blood Pressure 123/61 [Left] O2 Sat by Pulse 99 99 Oximetry - Lab 05/02/22 23:31 05/03/22 13:15 Most recent lab results Calcium 9.0 mg/dL (8.4-10.2) 05/03/22 13:15 Phosphorus 1.60 mg/dL (2.5-4.5) L 05/02/22 23:31 Magnesium 1.60 mg/dL (1.7-2.3) L 05/03/22 13:15 Medications & Allergies - Medications Allergies/Adverse Reactions: Allergies morphine Adverse Reaction (Verified 05/02/22 10:21) "TREMBLING" Home Medications: Home Medications Medication Instructions Recorded Confirmed Last Taken Type AtorvaSTATin [Lipitor] 40 mg PO QHS 05/02/22 05/02/22 Unknown History Folic Acid [Folvite] 2 mg PO QDAY 05/02/22 05/02/22 Unknown History Metoprolol [Lopressor] 25 mg PO BID 05/02/22 05/02/22 Unknown History Mirtazapine 7.5 mg PO QDAY 05/02/22 05/02/22 Unknown History Parenteral Amino Acid 20% No.1 141 ml IV QDAY 05/02/22 05/02/22 Unknown History [Prosol] Active Medications: Generic Name Dose Route Start Last Admin Trade Name Freq PRN Reason Stop Dose Admin Acetaminophen 650 mg 05/01/22 18:21 Acetaminophen 325 Mg Tab PO Q4H PRN Pain MILD(1-3)/Fever >100.5/FRIAS Albuterol 2.5 mg 05/01/22 18:21 Albuterol 2.5 Mg/3 Ml Nebu IH Q4HRT PRN Shortness Of Breath Atorvastatin Calcium 40 mg 05/03/22 22:00 05/03/22 21:58 Atorvastatin 40 Mg Tab PO 40 mg QHS JARETH Administration Folic Acid 2 mg 05/03/22 10:00 05/04/22 09:53 Folic Acid 1 Mg Tab PO 2 mg QDAY JARETH Administration Hydromorphone HCl 0.5 mg 05/01/22 18:21 Hydromorphone 0.5 Mg/0.5 Ml Inj IV Q13H PRN Pain , Severe (7-10) Ceftriaxone Sodium 1 gm in 50 mls @ 100 mls/hr 05/01/22 20:00 05/03/22 21:54 Rocephin/Ns 1 Gm/50 Ml IV 100 mls/hr Q24H JARETH Administration Protocol Sodium Chloride 100 mls @ 999 mls/hr 05/02/22 12:52 Nacl 0.9% IV NICOLE PRN Hypotension Metoprolol Tartrate 25 mg 05/03/22 10:00 05/04/22 09:53 Metoprolol Tartrate 25 Mg Tab PO 25 mg BID JARETH Administration Mirtazapine 7.5 mg 05/03/22 22:00 05/03/22 21:54 Mirtazapine 15 Mg Tab PO 7.5 mg QHS JARETH Administration Ondansetron HCl 4 mg 05/01/22 18:21 Ondansetron 4 Mg/2 Ml Inj IV Q8H PRN Nausea And Vomiting Oxycodone/Acetaminophen 1 tab 05/01/22 18:21 Oxycodone /Acetaminophen 5-325mg Tab PO Q16H PRN Pain, Moderate (4-6) Quetiapine Fumarate 12.5 mg 05/04/22 22:00 Quetiapine 25 Mg Tab PO BID JARETH Sodium Chloride 10 ml 05/01/22 22:00 05/04/22 09:54 Sodium Chloride 0.9% 10 Ml Flush Syringe IV 10 ml BID JARETH Administration Sodium Chloride 10 ml 05/01/22 18:21 Sodium Chloride 0.9% 10 Ml Flush Syringe IV PRN PRN LINE FLUSH
[2022-05-04] MEDS: cefTRIAXone/NS 1 GM/50 ML 1 GM/50 ML BAG IV SCH (21:40)
[2022-05-04] MEDS: MIRTAZAPINE 15 MG TAB PO SCH (21:41)
[2022-05-05] MEDS: FOLIC ACID 1 MG TAB PO SCH (09:17)
[2022-05-05] MEDS: QUEtiapine 25 MG TAB PO SCH ×2 (09:17→21:13)
[2022-05-05] MEDS: METOPROLOL TARTRATE 25 MG TAB PO SCH ×2 (09:18→22:00)
[2022-05-05 11:29] LABS: Calcium 8.7 mg/dL (8.4-10.2)
--- NOTE | 2022-05-05 11:42 | Progress Note ---
Assessment and Plan This is a 81-year-old woman with end-stage renal disease on hemodialysis TTS, hypertension, hyperlipidemia and vascular dementia who was brought in by EMS due to 1 month history of increased confusion and weakness. Family also reported 1 day history of HD catheter dislodgment. Nephrology was consulted for ESRD management. Patient was admitted for further evaluation and management. 05/02: Status post PermCath placed today, patient getting hemodialysis, patient was very agitated and placed on restraint. Continue to follow clinically, repeat labs in the morning. Family requested placement, discussed with case management. 05/03: Discussed with family at the bedside, patient remains very confused and agitated, placed on restraint. We will also add Seroquel and as needed Haldol to relieve anxiety. Family requested placement -referral has sent out by case management. We will continue to follow 05/04: Reduce Seroquel dose as patient appears sleepy, continue restraint as needed. Pending placement. Continue to follow BMP. 05/05: clinically stable, pending placement. cont supportive care, HD per ranal team. cont abx total 7 days Assessment and plan -- UTI (urinary tract infection) IV antibiotic therapy, urinalysis. -- Acute Metabolic encephalopathy with underlying dementia and delirium Treat UTI, supportive care, dialysis as per renal team, supportive care Restraint as needed. Placed on Seroquel and as needed Haldol -- End stage renal disease Nephrology consulted, HD per nephrology, monitor BMP --Complications, dialysis, catheter, mechanical Vascular surgery team consulted. Status post new PermCath placement -- Vascular dementia Verbal prompting, verbal redirection, benzodiazepine therapy as clinically indicated. -- Cerebral atherosclerosis Risk factor reduction, antiplatelet therapy as clinically indicated. -- Malnutrition, moderate Increase protein intake when awake and alert only, dietary supplementation. --Chronic debility Fall precautions, supportive care. Family requested senior care placement -- DVT prophylaxis SCD to bilateral lower extremities while in bed -- Full CODE STATUS Subjective Date of service: 05/05/22 Principal diagnosis: Catheter malfunction Interval history: Patient seen and examined. Medical records and medication list reviewed. No acute event overnight noted by the RN. Patient remains very confused but more calm and cooperative today Pending placement Objective - Exam Narrative Exam: General appearance: Present: other (Malnourished elderly -[place] Islander female appears to be very confused) - EENT Eyes: no scleral icterus, no conjunctival injection ENT: other (Does not follow command confused) Ears: bilateral: normal - Neck Neck: supple, normal ROM - Respiratory Respiratory effort: normal Respiratory: bilateral: CTA - Cardiovascular Rhythm: regular Heart Sounds: Present: S1 & S2. Absent: gallop, rub Extremities: pulses intact, No edema, normal color - Gastrointestinal General gastrointestinal: Present: soft, non-tender, non-distended, normal bowel sounds - Integumentary Integumentary: clear, warm, dry - Musculoskeletal Musculoskeletal: generalized weakness - Neurologic Neurologic: moves all extremities - Psychiatric Psychiatric: no appropriate mood/affect, no intact judgment & insight, no memory intact - Constitutional Vitals: Vital Signs - 12hr 05/05/22 05/05/22 05/05/22 02:06 04:58 08:00 Temperature 98.2 F 98.3 F Pulse Rate 63 63 Respiratory 18 20 Rate Blood Pressure 124/52 155/58 Blood Pressure [Left] O2 Sat by Pulse 98 99 98 Oximetry 05/05/22 05/05/22 09:16 09:18 Temperature 98 F Pulse Rate 70 70 Respiratory 20 Rate Blood Pressure 127/58 Blood Pressure 127/58 [Left] O2 Sat by Pulse 97 Oximetry - Labs CBC & Chem 7: 05/06/22 05:36 05/06/22 05:36 Labs: Abnormal lab results 05/05/22 Range/Units 11:01 BUN 22 H (7-17) mg/dL Creatinine 3.5 H D (0.6-1.2) mg/dL
--- NOTE | 2022-05-05 18:21 | Progress Note ---
Assessment and Plan End-stage renal disease on hemodialysis Anemia of CKD Hypophosphatemia Hyperparathyroidism Status post PermCath placement by IR 05/04 Continue HD TTS Creatinine value noted, ordered 24 hour crcl but urine volume very low and not valid for evaluation No indication for binders Transfuse for hemoglobin less than 7 Epogen with HD as needed Renally dose medications ESRD diet with 1.2-1. 4 g/kg/d protein intake Subjective Date of service: 05/05/22 Principal diagnosis: Catheter malfunction Interval history: Resting in bed Vitals, labs and I/os reviewed Interdisciplinary notes and consults reviewed Objective - Exam Narrative Exam: Constitutional: no acute distress Head: NC/AT Neck: supple Lungs: clear to auscultation CV: RRR Abdomen: soft, non-tender, bowel sounds present Back: nontender Extremities: no edema, pulses WNL Skin: intact Neuro: Confused - Vital Signs Vital signs: Vital Signs - 12hr 05/05/22 05/05/22 05/05/22 08:00 09:16 09:18 Temperature 98 F Pulse Rate 70 70 Respiratory 20 Rate Blood Pressure 127/58 Blood Pressure 127/58 [Left] O2 Sat by Pulse 98 97 Oximetry 05/05/22 05/05/22 12:43 15:57 Temperature 98.0 F 98.4 F Pulse Rate 64 81 Respiratory 16 15 Rate Blood Pressure 103/83 127/56 Blood Pressure [Left] O2 Sat by Pulse 98 100 Oximetry - Lab 05/02/22 23:31 05/05/22 11:01 Most recent lab results Calcium 8.7 mg/dL (8.4-10.2) 05/05/22 11:01 Phosphorus 1.60 mg/dL (2.5-4.5) L 05/02/22 23:31 Magnesium 1.60 mg/dL (1.7-2.3) L 05/03/22 13:15 Medications & Allergies - Medications Allergies/Adverse Reactions: Allergies morphine Adverse Reaction (Verified 05/02/22 10:21) "TREMBLING" Home Medications: Home Medications Medication Instructions Recorded Confirmed Last Taken Type AtorvaSTATin [Lipitor] 40 mg PO QHS 05/02/22 05/02/22 Unknown History Folic Acid [Folvite] 2 mg PO QDAY 05/02/22 05/02/22 Unknown History Metoprolol [Lopressor] 25 mg PO BID 05/02/22 05/02/22 Unknown History Mirtazapine 7.5 mg PO QDAY 05/02/22 05/02/22 Unknown History Parenteral Amino Acid 20% No.1 141 ml IV QDAY 05/02/22 05/02/22 Unknown History [Prosol] Active Medications: Generic Name Dose Route Start Last Admin Trade Name Freq PRN Reason Stop Dose Admin Acetaminophen 650 mg 05/01/22 18:21 Acetaminophen 325 Mg Tab PO Q4H PRN Pain MILD(1-3)/Fever >100.5/FRIAS Albuterol 2.5 mg 05/01/22 18:21 Albuterol 2.5 Mg/3 Ml Nebu IH Q4HRT PRN Shortness Of Breath Atorvastatin Calcium 40 mg 05/03/22 22:00 05/04/22 21:40 Atorvastatin 40 Mg Tab PO 40 mg QHS JARETH Administration Folic Acid 2 mg 05/03/22 10:00 05/05/22 09:17 Folic Acid 1 Mg Tab PO 2 mg QDAY JARETH Administration Hydromorphone HCl 0.5 mg 05/01/22 18:21 Hydromorphone 0.5 Mg/0.5 Ml Inj IV Q13H PRN Pain , Severe (7-10) Ceftriaxone Sodium 1 gm in 50 mls @ 100 mls/hr 05/01/22 20:00 05/05/22 03:22 Rocephin/Ns 1 Gm/50 Ml IV Infused Q24H JARETH Infusion Protocol Sodium Chloride 100 mls @ 999 mls/hr 05/02/22 12:52 Nacl 0.9% IV NICOLE PRN Hypotension Metoprolol Tartrate 25 mg 05/03/22 10:00 05/05/22 09:18 Metoprolol Tartrate 25 Mg Tab PO 25 mg BID JARETH Administration Mirtazapine 7.5 mg 05/03/22 22:00 05/04/22 21:41 Mirtazapine 15 Mg Tab PO 7.5 mg QHS JARETH Administration Ondansetron HCl 4 mg 05/01/22 18:21 Ondansetron 4 Mg/2 Ml Inj IV Q8H PRN Nausea And Vomiting Oxycodone/Acetaminophen 1 tab 05/01/22 18:21 Oxycodone /Acetaminophen 5-325mg Tab PO Q16H PRN Pain, Moderate (4-6) Quetiapine Fumarate 12.5 mg 05/04/22 22:00 05/05/22 09:17 Quetiapine 25 Mg Tab PO 12.5 mg BID JARETH Administration Sodium Chloride 10 ml 05/01/22 22:00 05/05/22 09:18 Sodium Chloride 0.9% 10 Ml Flush Syringe IV 10 ml BID JARETH Administration Sodium Chloride 10 ml 05/01/22 18:21 Sodium Chloride 0.9% 10 Ml Flush Syringe IV PRN PRN LINE FLUSH
[2022-05-05] MEDS: cefTRIAXone/NS 1 GM/50 ML 1 GM/50 ML BAG IV SCH (20:51)
[2022-05-05] MEDS: MIRTAZAPINE 15 MG TAB PO SCH (21:12)
[2022-05-06 08:06] LABS: Calcium 8.4 mg/dL (8.4-10.2)
[2022-05-06] MEDS: QUEtiapine 25 MG TAB PO SCH ×2 (09:40→21:07)
[2022-05-06] MEDS: METOPROLOL TARTRATE 25 MG TAB PO SCH ×2 (09:40→23:47)
[2022-05-06] MEDS: FOLIC ACID 1 MG TAB PO SCH (09:40)
[2022-05-06 09:48] LABS: Eosinophils # (Auto) 0.1 K/mm3 (0.0-0.4); Eosinophils % (Auto) 7.6 % (0.0-4.3); Hematocrit 23.6 % (30.3-42.9); Hemoglobin 7.7 gm/dl (10.1-14.3); Mean Corpuscular HGB Conc 33 % (30-34); Mean Corpuscular Volume 93 fl (79-97); Platelet Count 121 K/mm3 (140-440); Red Blood Count 2.55 M/mm3 (3.65-5.03); Red Cell Distribution Width 19.4 % (13.2-15.2)
--- NOTE | 2022-05-06 14:47 | Progress Note ---
Assessment and Plan This is a 81-year-old woman with end-stage renal disease on hemodialysis TTS, hypertension, hyperlipidemia and vascular dementia who was brought in by EMS due to 1 month history of increased confusion and weakness. Family also reported 1 day history of HD catheter dislodgment. Nephrology was consulted for ESRD management. Patient was admitted for further evaluation and management. 05/02: Status post PermCath placed today, patient getting hemodialysis, patient was very agitated and placed on restraint. Continue to follow clinically, repeat labs in the morning. Family requested placement, discussed with case management. 05/03: Discussed with family at the bedside, patient remains very confused and agitated, placed on restraint. We will also add Seroquel and as needed Haldol to relieve anxiety. Family requested placement -referral has sent out by case management. We will continue to follow 05/04: Reduce Seroquel dose as patient appears sleepy, continue restraint as needed. Pending placement. Continue to follow BMP. 05/05: clinically stable, pending placement. cont supportive care, HD per ranal team. cont abx total 7 days 05/06: clinically stable. last dose of abx tomorrow. follow clinically. discussed with CM and RN. HD per renal. Assessment and plan -- UTI (urinary tract infection) IV antibiotic therapy, urinalysis. -- Acute Metabolic encephalopathy with underlying dementia and delirium Treat UTI, supportive care, dialysis as per renal team, supportive care Restraint as needed. Placed on Seroquel and as needed Haldol -- End stage renal disease Nephrology consulted, HD per nephrology, monitor BMP --Complications, dialysis, catheter, mechanical Vascular surgery team consulted. Status post new PermCath placement -- Vascular dementia Verbal prompting, verbal redirection, benzodiazepine therapy as clinically indicated. -- Cerebral atherosclerosis Risk factor reduction, antiplatelet therapy as clinically indicated. -- Malnutrition, moderate Increase protein intake when awake and alert only, dietary supplementation. --Chronic debility Fall precautions, supportive care. Family requested detention placement -- DVT prophylaxis SCD to bilateral lower extremities while in bed -- Full CODE STATUS Subjective Date of service: 05/06/22 Principal diagnosis: Catheter malfunction Interval history: Patient seen and examined. Medical records and medication list reviewed. No acute event overnight noted by the RN. Patient remains very confused but more calm and cooperative today Pending placement,no change clinically Family declined hospice and requested placement Objective - Exam Narrative Exam: General appearance: Present: other (Malnourished elderly -[place]ian female appears to be very confused) - EENT Eyes: no scleral icterus, no conjunctival injection ENT: other (Does not follow command confused) Ears: bilateral: normal - Neck Neck: supple, normal ROM - Respiratory Respiratory effort: normal Respiratory: bilateral: CTA - Cardiovascular Rhythm: regular Heart Sounds: Present: S1 & S2. Absent: gallop, rub Extremities: pulses intact, No edema, normal color - Gastrointestinal General gastrointestinal: Present: soft, non-tender, non-distended, normal bowel sounds - Integumentary Integumentary: clear, warm, dry - Musculoskeletal Musculoskeletal: generalized weakness - Neurologic Neurologic: moves all extremities - Psychiatric Psychiatric: no appropriate mood/affect, no intact judgment & insight, no memory intact - Constitutional Vitals: Vital Signs - 12hr 05/06/22 05/06/22 05/06/22 04:33 10:00 12:56 Temperature 98.0 F 98.2 F Pulse Rate 48 L 68 Respiratory 18 20 Rate Blood Pressure 154/74 Blood Pressure 121/50 [Left] O2 Sat by Pulse 100 100 100 Oximetry - Labs CBC & Chem 7: 05/06/22 05:36 05/06/22 05:36 Labs: Abnormal lab results 05/06/22 05/06/22 Range/Units 05:36 05:36 WBC 1.8 L* (4.5-11.0) K/mm3 RBC 2.55 L (3.65-5.03) M/mm3 Hgb 7.7 L (10.1-14.3) gm/dl Hct 23.6 L (30.3-42.9) % RDW 19.4 H (13.2-15.2) % Plt Count 121 L (140-440) K/mm3 Eos % (Auto) 7.6 H (0.0-4.3) % Seg Neutrophils # 0.7 L (1.8-7.7) K/mm3 Potassium 3.4 L (3.6-5.0) mmol/L BUN 25 H (7-17) mg/dL Creatinine 3.8 H (0.6-1.2) mg/dL
--- NOTE | 2022-05-06 18:35 | Progress Note ---
Assessment and Plan Assessment/Plan: End-stage renal disease on hemodialysis Anemia of CKD Hypophosphatemia Hyperparathyroidism Urinary Tract Infection Acute Metabolic Encephalopathy Vascular Dementia Malnutrition Chronic Debility Leukopenia Status post PermCath placement per IR 05/04 Continue HD TTS or prn, no need for HD today per labs/volume No indication for binders Transfuse for hemoglobin less than 7 Epogen with HD as needed Renally dose medications ESRD diet with 1.2-1. 4 g/kg/d protein intake Subjective Date of service: 05/06/22 Principal diagnosis: Catheter malfunction Interval history: Resting in bed No acute events noted Vitals, labs and I/os reviewed Interdisciplinary notes and consults reviewed Objective - Exam Narrative Exam: Constitutional: no acute distress Head: NC/AT Neck: supple Lungs: clear to auscultation CV: RRR Abdomen: soft, non-tender, bowel sounds present Back: nontender Extremities: no edema, pulses WNL Skin: intact Neuro: Confused - Vital Signs Vital signs: Vital Signs - 12hr 05/06/22 05/06/22 10:00 12:56 Temperature 98.2 F Pulse Rate 68 Respiratory 20 Rate Blood Pressure 121/50 [Left] O2 Sat by Pulse 100 100 Oximetry - Lab 05/06/22 05:36 05/06/22 05:36 Most recent lab results Calcium 8.4 mg/dL (8.4-10.2) 05/06/22 05:36 Phosphorus 1.60 mg/dL (2.5-4.5) L 05/02/22 23:31 Magnesium 1.60 mg/dL (1.7-2.3) L 05/03/22 13:15 Medications & Allergies - Medications Allergies/Adverse Reactions: Allergies morphine Adverse Reaction (Verified 05/02/22 10:21) "TREMBLING" Home Medications: Home Medications Medication Instructions Recorded Confirmed Last Taken Type AtorvaSTATin [Lipitor] 40 mg PO QHS 05/02/22 05/02/22 Unknown History Folic Acid [Folvite] 2 mg PO QDAY 05/02/22 05/02/22 Unknown History Metoprolol [Lopressor] 25 mg PO BID 05/02/22 05/02/22 Unknown History Mirtazapine 7.5 mg PO QDAY 05/02/22 05/02/22 Unknown History Parenteral Amino Acid 20% No.1 141 ml IV QDAY 05/02/22 05/02/22 Unknown History [Prosol] Active Medications: Generic Name Dose Route Start Last Admin Trade Name Freq PRN Reason Stop Dose Admin Acetaminophen 650 mg 05/01/22 18:21 Acetaminophen 325 Mg Tab PO Q4H PRN Pain MILD(1-3)/Fever >100.5/FRIAS Albuterol 2.5 mg 05/01/22 18:21 Albuterol 2.5 Mg/3 Ml Nebu IH Q4HRT PRN Shortness Of Breath Atorvastatin Calcium 40 mg 05/03/22 22:00 05/05/22 21:12 Atorvastatin 40 Mg Tab PO 40 mg QHS JARETH Administration Folic Acid 2 mg 05/03/22 10:00 05/06/22 09:40 Folic Acid 1 Mg Tab PO 2 mg QDAY JARETH Administration Hydromorphone HCl 0.5 mg 05/01/22 18:21 Hydromorphone 0.5 Mg/0.5 Ml Inj IV Q13H PRN Pain , Severe (7-10) Ceftriaxone Sodium 1 gm in 50 mls @ 100 mls/hr 05/01/22 20:00 05/06/22 00:57 Rocephin/Ns 1 Gm/50 Ml IV 05/07/22 20:29 Infused Q24H JARETH Infusion Protocol Sodium Chloride 100 mls @ 999 mls/hr 05/02/22 12:52 Nacl 0.9% IV NICOLE PRN Hypotension Metoprolol Tartrate 25 mg 05/03/22 10:00 05/06/22 09:40 Metoprolol Tartrate 25 Mg Tab PO 25 mg BID JARETH Administration Mirtazapine 7.5 mg 05/03/22 22:00 05/05/22 21:12 Mirtazapine 15 Mg Tab PO 7.5 mg QHS JARETH Administration Ondansetron HCl 4 mg 05/01/22 18:21 Ondansetron 4 Mg/2 Ml Inj IV Q8H PRN Nausea And Vomiting Oxycodone/Acetaminophen 1 tab 05/01/22 18:21 Oxycodone /Acetaminophen 5-325mg Tab PO Q16H PRN Pain, Moderate (4-6) Quetiapine Fumarate 12.5 mg 05/04/22 22:00 05/06/22 09:40 Quetiapine 25 Mg Tab PO 12.5 mg BID JARETH Administration Sodium Chloride 10 ml 05/01/22 22:00 05/06/22 09:41 Sodium Chloride 0.9% 10 Ml Flush Syringe IV 10 ml BID JARETH Administration Sodium Chloride 10 ml 05/01/22 18:21 Sodium Chloride 0.9% 10 Ml Flush Syringe IV PRN PRN LINE FLUSH
[2022-05-06] MEDS: cefTRIAXone/NS 1 GM/50 ML 1 GM/50 ML BAG IV SCH (21:06)
[2022-05-06] MEDS: MIRTAZAPINE 15 MG TAB PO SCH (21:08)
[2022-05-07] MEDS: METOPROLOL TARTRATE 25 MG TAB PO SCH ×2 (09:14→21:14)
[2022-05-07] MEDS: QUEtiapine 25 MG TAB PO SCH ×2 (09:14→21:14)
[2022-05-07] MEDS: FOLIC ACID 1 MG TAB PO SCH (09:14)
--- NOTE | 2022-05-07 09:42 | Progress Note ---
Assessment and Plan Assessment/Plan: End-stage renal disease on hemodialysis Anemia of CKD Hypophosphatemia Hyperparathyroidism Urinary Tract Infection Acute Metabolic Encephalopathy Vascular Dementia Malnutrition Chronic Debility Leukopenia Status post PermCath placement per IR 05/04 Continue HD TTS or prn, due today No indication for binders Transfuse for hemoglobin less than 7 Epogen with HD as needed Renally dose medications ESRD diet with 1.2-1. 4 g/kg/d protein intake Subjective Date of service: 05/07/22 Principal diagnosis: Catheter malfunction Interval history: Resting in bed No acute events noted Vitals, labs and I/os reviewed Interdisciplinary notes and consults reviewed Objective - Exam Narrative Exam: Constitutional: no acute distress Head: NC/AT Neck: supple Lungs: clear to auscultation CV: RRR Abdomen: soft, non-tender, bowel sounds present Back: nontender Extremities: no edema, pulses WNL Skin: intact Neuro: Confused - Vital Signs Vital signs: Vital Signs - 12hr 05/06/22 05/07/22 22:00 04:53 Temperature 98.7 F Pulse Rate 63 Respiratory 16 Rate Blood Pressure 143/65 O2 Sat by Pulse 100 100 Oximetry - Lab 05/06/22 05:36 05/06/22 05:36 Most recent lab results Calcium 8.4 mg/dL (8.4-10.2) 05/06/22 05:36 Phosphorus 1.60 mg/dL (2.5-4.5) L 05/02/22 23:31 Magnesium 1.60 mg/dL (1.7-2.3) L 05/03/22 13:15 Medications & Allergies - Medications Allergies/Adverse Reactions: Allergies morphine Adverse Reaction (Verified 05/02/22 10:21) "TREMBLING" Home Medications: Home Medications Medication Instructions Recorded Confirmed Last Taken Type AtorvaSTATin [Lipitor] 40 mg PO QHS 05/02/22 05/02/22 Unknown History Folic Acid [Folvite] 2 mg PO QDAY 05/02/22 05/02/22 Unknown History Metoprolol [Lopressor] 25 mg PO BID 05/02/22 05/02/22 Unknown History Mirtazapine 7.5 mg PO QDAY 05/02/22 05/02/22 Unknown History Parenteral Amino Acid 20% No.1 141 ml IV QDAY 05/02/22 05/02/22 Unknown History [Prosol] Active Medications: Generic Name Dose Route Start Last Admin Trade Name Freq PRN Reason Stop Dose Admin Acetaminophen 650 mg 05/01/22 18:21 Acetaminophen 325 Mg Tab PO Q4H PRN Pain MILD(1-3)/Fever >100.5/FRIAS Albuterol 2.5 mg 05/01/22 18:21 Albuterol 2.5 Mg/3 Ml Nebu IH Q4HRT PRN Shortness Of Breath Atorvastatin Calcium 40 mg 05/03/22 22:00 05/06/22 21:07 Atorvastatin 40 Mg Tab PO 40 mg QHS JARETH Administration Folic Acid 2 mg 05/03/22 10:00 05/07/22 09:14 Folic Acid 1 Mg Tab PO 2 mg QDAY JARETH Administration Hydromorphone HCl 0.5 mg 05/01/22 18:21 Hydromorphone 0.5 Mg/0.5 Ml Inj IV Q13H PRN Pain , Severe (7-10) Ceftriaxone Sodium 1 gm in 50 mls @ 100 mls/hr 05/01/22 20:00 05/06/22 21:06 Rocephin/Ns 1 Gm/50 Ml IV 05/07/22 20:29 100 mls/hr Q24H JARETH Administration Protocol Sodium Chloride 100 mls @ 999 mls/hr 05/02/22 12:52 Nacl 0.9% IV NICOLE PRN Hypotension Metoprolol Tartrate 25 mg 05/03/22 10:00 05/07/22 09:14 Metoprolol Tartrate 25 Mg Tab PO 25 mg BID JARETH Administration Mirtazapine 7.5 mg 05/03/22 22:00 05/06/22 21:08 Mirtazapine 15 Mg Tab PO 7.5 mg QHS JARETH Administration Ondansetron HCl 4 mg 05/01/22 18:21 Ondansetron 4 Mg/2 Ml Inj IV Q8H PRN Nausea And Vomiting Oxycodone/Acetaminophen 1 tab 05/01/22 18:21 Oxycodone /Acetaminophen 5-325mg Tab PO Q16H PRN Pain, Moderate (4-6) Quetiapine Fumarate 12.5 mg 05/04/22 22:00 05/07/22 09:14 Quetiapine 25 Mg Tab PO 12.5 mg BID JARETH Administration Sodium Chloride 10 ml 05/01/22 22:00 05/07/22 09:14 Sodium Chloride 0.9% 10 Ml Flush Syringe IV 10 ml BID JARETH Administration Sodium Chloride 10 ml 05/01/22 18:21 05/06/22 21:11 Sodium Chloride 0.9% 10 Ml Flush Syringe IV 10 ml PRN PRN Administration LINE FLUSH
--- NOTE | 2022-05-07 17:26 | Discharge Summary ---
Providers - Providers Date of Admission: 05/01/22 18:21 Date of discharge: 05/07/22 Attending physician: CHAPARRO BELL MD 05/01/22 18:27 Consult to Physician [CONS] Stat Comment: Consulting Provider: DARCY NAIR Physician Instructions: Reason For Exam: DIALYSIS CATHETER CAME OUT 05/02/22 11:48 Consult to Physician [CONS] Routine Comment: Consulting Provider: MEERA HE Physician Instructions: Reason For Exam: esrd Primary care physician: MONA SHAH Hospitalization Reason for admission: Dislodged dialysis catheter, acute metabolic e ncephalopathy Condition: Stable Pertinent studies: Reviewed. Procedures: Placement of permacath by vascular surgery Hospital course: The patient is an 81 YO Female with Vascular Dementia, Cerebral Atherosclerosis, HTN, HLD, ESRD on HD(T,R,Sa) presents to ED for evaluation. Patient is confused with diminished cognition at the time my evaluation is unable to provide history. Patient history provided by EMS staff, ED staff, as well as patient family was at bedside during exam and interview. As per family patient has experienced increased confusion and weakness and increased bedbound status over the past 1 month. Patient family noticed that patient dialysis catheter had been dislodged today. EMS was notified and upon arrival the patient was found to be in distress and subsequent transported to [facility] for further care and evaluation of the aforementioned symptoms. The patient was seen and evaluated in the emergency department. All lab and imaging studies reviewed. Patient was found to have UTI complicated by metabolic encephalopathy, end-stage renal disease in need of dialysis, as well as dislodgment of dialysis catheter. Vascular surgery team notified in ED. patient has diminished cognition but has a positive gag reflex and is able to protect her airway without difficulty. Patient got her permacath replaced on 05/02/2022. Afterwards, family discussion was had concerning placement. Patient's family requested placement and referrals were sent out via case management. Patient's encephalopathy has since improved with treatment of her acute cystitis. Patient has continued to receive hemodialysis via nephrology consult. Patient is medically clear for discharge. Disposition: HOME / SELF CARE / HOMELESS Final Discharge Diagnosis (Prints w/discharge instructions): Acute metabolic encephalopathy, acute cystitis without hematuria, ESRD on hemodialysis, dislodged dialysis catheter, vascular dementia, cerebral atherosclerosis, moderate protein malnutrition, chronic debility Time spent for discharge: 45 min Core Measure Documentation - Palliative Care Palliative Care/ Comfort Measures: Not Applicable - Core Measures Any of the following diagnoses?: none Exam - Constitutional Vitals: Temp Pulse Resp BP Pulse Ox 98.0 F 72 20 133/52 100 05/07/22 13:35 05/07/22 13:35 05/07/22 13:35 05/07/22 13:35 05/07/22 13:35 General appearance: Present: no acute distress, well-nourished, other (Dementia at baseline) - EENT Eyes: Present: PERRL, EOM intact ENT: hearing intact, clear oral mucosa - Neck Neck: Present: supple, normal ROM, other (Permacath in right upper chest) - Respiratory Respiratory effort: normal Respiratory: bilateral: CTA - Cardiovascular Rhythm: regular Heart Sounds: Present: S1 & S2 - Extremities Extremities: no ischemia, pulses intact, pulses symmetrical, No edema, normal temperature, normal color, Full ROM Peripheral Pulses: within normal limits - Abdominal General gastrointestinal: Present: soft, non-tender, non-distended, normal bowel sounds Female genitourinary: Present: deferred - Rectal Rectal Exam: deferred - Integumentary Integumentary: Present: clear, warm, dry - Musculoskeletal Musculoskeletal: generalized weakness - Psychiatric Psychiatric: appropriate mood/affect, other (Pleasantly demented at baseline) - Neurologic Neurologic: CNII-XII intact - Allied Health Allied health notes reviewed: nursing, social work, case management Plan Activity: advance as tolerated Diet: renal Additional Instructions: The patient is an 81 YO Female with Vascular Dementia, Cerebral Atherosclerosis, HTN, HLD, ESRD on HD(T,R,Sa) presents to ED for evaluation. Patient is confused with diminished cognition at the time my evaluation is unable to provide history. Patient history provided by EMS staff, ED staff, as well as patient family was at bedside during exam and interview. As per family patient has experienced increased confusion and weakness and increased bedbound status over the past 1 month. Patient family noticed that patient dialysis catheter had been dislodged today. EMS was notified and upon arrival the patient was found to be in distress and subsequent transported to [facility] for further care and evaluation of the aforementioned symptoms. The patient was seen and evaluated in the emergency department. All lab and imaging s tudies reviewed. Patient was found to have UTI complicated by metabolic encephalopathy, end-stage renal disease in need of dialysis, as well as dislodgment of dialysis catheter. Vascular surgery team notified in ED. patient has diminished cognition but has a positive gag reflex and is able to protect her airway without difficulty. Patient got her permacath replaced on 05/02/2022. Afterwards, family discussion was had concerning placement. Patient's family requested placement and referrals were sent out via case management. Patient's encephalopathy has since improved with treatment of her acute cystitis. Patient has continued to receive hemodialysis via nephrology consult. Patient is medically clear for discharge. Care Plan Goals: Patient is medically clear for discharge. Assessment: The patient is an 81 YO Female with Vascular Dementia, Cerebral Atherosclerosis, HTN, HLD, ESRD on HD(T,R,Sa) presents to ED for evaluation. Patient is confused with diminished cognition at the time my evaluation is unable to provide history. Patient history provided by EMS staff, ED staff, as well as patient family was at bedside during exam and interview. As per family patient has experienced increased confusion and weakness and increased bedbound status over the past 1 month. Patient family noticed that patient dialysis catheter had been dislodged today. EMS was notified and upon arrival the patient was found to be in distress and subsequent transported to [facility] for further care and evaluation of the aforementioned symptoms. The patient was seen and evaluated in the emergency department. All lab and imaging studies reviewed. Patient was found to have UTI complicated by metabolic encephalopathy, end-stage renal disease in need of dialysis, as well as dislodgment of dialysis catheter. Vascular surgery team notified in ED. patient has diminished cognition but has a positive gag reflex and is able to protect her airway without difficulty. Patient got her permacath replaced on 05/02/2022. Afterwards, family discussion was had concerning placement. Patient's family requested placement and referrals were sent out via case management. Patient's encephalopathy has since improved with treatment of her acute cystitis. Patient has continued to receive hemodialysis via nephrology consult. Patient is medically clear for bird [facility]. Follow up with: MONA SHAH MD [Primary Care Provider] - 14 Days Prescriptions: QUEtiapine [SEROquel] 12.5 mg PO BID #60 tablet
[2022-05-07 20:40] LABS: Hemoglobin 7.1 gm/dl (10.1-14.3); Mean Corpuscular HGB Conc 32 % (30-34); Mean Corpuscular Volume 92 fl (79-97); Platelet Count 104 K/mm3 (140-440); Red Cell Distribution Width 19.6 % (13.2-15.2)
[2022-05-07] MEDS: cefTRIAXone/NS 1 GM/50 ML 1 GM/50 ML BAG IV SCH (21:13)
[2022-05-07] MEDS: MIRTAZAPINE 15 MG TAB PO SCH (21:14)
--- NOTE | 2022-05-08 09:08 | Progress Note ---
Assessment and Plan Assessment/Plan: End-stage renal disease on hemodialysis Anemia of CKD Hypophosphatemia Hyperparathyroidism Urinary Tract Infection Acute Metabolic Encephalopathy Vascular Dementia Malnutrition Chronic Debility Leukopenia Status post PermCath placement per IR 05/04 Continue HD TTS or prn, due tomorrow, no indication for HD today No indication for binders Transfuse for hemoglobin less than 7 Epogen with HD as needed Renally dose medications ESRD diet with 1.2-1. 4 g/kg/d protein intake Subjective Date of service: 05/08/22 Principal diagnosis: Catheter malfunction Interval history: Resting in bed No acute events noted Vitals, labs and I/os reviewed Interdisciplinary notes and consults reviewed Objective - Exam Narrative Exam: Constitutional: no acute distress Head: NC/AT Neck: supple Lungs: clear to auscultation CV: RRR Abdomen: soft, non-tender, bowel sounds present Back: nontender Extremities: no edema, pulses WNL Skin: intact Neuro: Confused - Vital Signs Vital signs: Vital Signs - 12hr 05/07/22 05/07/22 05/08/22 21:24 22:00 05:37 Temperature 98.1 F 98.0 F Pulse Rate 62 Respiratory 16 Rate Blood Pressure 137/63 Blood Pressure 143/60 [Left] O2 Sat by Pulse 100 Oximetry 05/08/22 05:39 Temperature Pulse Rate Respiratory 16 Rate Blood Pressure Blood Pressure [Left] O2 Sat by Pulse 98 Oximetry - Lab 05/07/22 12:23 05/06/22 05:36 Most recent lab results Calcium 8.4 mg/dL (8.4-10.2) 05/06/22 05:36 Phosphorus 1.60 mg/dL (2.5-4.5) L 05/02/22 23:31 Magnesium 1.60 mg/dL (1.7-2.3) L 05/03/22 13:15 Medications & Allergies - Medications Allergies/Adverse Reactions: Allergies morphine Adverse Reaction (Verified 05/02/22 10:21) "TREMBLING" Home Medications: Home Medications Medication Instructions Recorded Confirmed Last Taken Type AtorvaSTATin [Lipitor] 40 mg PO QHS 05/02/22 05/02/22 Unknown History Folic Acid [Folvite] 2 mg PO QDAY 05/02/22 05/02/22 Unknown History Metoprolol [Lopressor TAB] 25 mg PO BID 05/02/22 05/02/22 Unknown History Mirtazapine 7.5 mg PO QDAY 05/02/22 05/02/22 Unknown History QUEtiapine [SEROquel] 12.5 mg PO BID #60 tablet 05/07/22 Unknown Rx Active Medications: Generic Name Dose Route Start Last Admin Trade Name Freq PRN Reason Stop Dose Admin Acetaminophen 650 mg 05/01/22 18:21 Acetaminophen 325 Mg Tab PO Q4H PRN Pain MILD(1-3)/Fever >100.5/FRIAS Albuterol 2.5 mg 05/01/22 18:21 Albuterol 2.5 Mg/3 Ml Nebu IH Q4HRT PRN Shortness Of Breath Atorvastatin Calcium 40 mg 05/03/22 22:00 05/07/22 21:14 Atorvastatin 40 Mg Tab PO 40 mg QHS JARETH Administration Folic Acid 2 mg 05/03/22 10:00 05/07/22 09:14 Folic Acid 1 Mg Tab PO 2 mg QDAY JARETH Administration Hydromorphone HCl 0.5 mg 05/01/22 18:21 Hydromorphone 0.5 Mg/0.5 Ml Inj IV Q13H PRN Pain , Severe (7-10) Sodium Chloride 100 mls @ 999 mls/hr 05/02/22 12:52 Nacl 0.9% IV NICOLE PRN Hypotension Metoprolol Tartrate 25 mg 05/03/22 10:00 05/07/22 21:14 Metoprolol Tartrate 25 Mg Tab PO 25 mg BID JARETH Administration Mirtazapine 7.5 mg 05/03/22 22:00 05/07/22 21:14 Mirtazapine 15 Mg Tab PO 7.5 mg QHS JARETH Administration Ondansetron HCl 4 mg 05/01/22 18:21 Ondansetron 4 Mg/2 Ml Inj IV Q8H PRN Nausea And Vomiting Oxycodone/Acetaminophen 1 tab 05/01/22 18:21 Oxycodone /Acetaminophen 5-325mg Tab PO Q16H PRN Pain, Moderate (4-6) Quetiapine Fumarate 12.5 mg 05/04/22 22:00 05/07/22 21:14 Quetiapine 25 Mg Tab PO 12.5 mg BID JARETH Administration Sodium Chloride 10 ml 05/01/22 22:00 05/07/22 22:11 Sodium Chloride 0.9% 10 Ml Flush Syringe IV 10 ml BID JARETH Administration Sodium Chloride 10 ml 05/01/22 18:21 05/06/22 21:11 Sodium Chloride 0.9% 10 Ml Flush Syringe IV 10 ml PRN PRN Administration LINE FLUSH
[2022-05-08] MEDS: QUEtiapine 25 MG TAB PO SCH ×2 (09:13→22:14)
[2022-05-08] MEDS: FOLIC ACID 1 MG TAB PO SCH (09:13)
[2022-05-08] MEDS: METOPROLOL TARTRATE 25 MG TAB PO SCH ×2 (09:33→22:15)
[2022-05-08 16:27] LABS: Calcium 8.6 mg/dL (8.4-10.2)
[2022-05-08 16:32] LABS: Hematocrit 25.8 % (30.3-42.9); Hemoglobin 8.5 gm/dl (10.1-14.3); Mean Corpuscular HGB Conc 33 % (30-34); Mean Corpuscular Volume 93 fl (79-97); Red Blood Count 2.77 M/mm3 (3.65-5.03)
[2022-05-08 16:40] LABS: Platelet Count 99 K/mm3 (140-440); Red Cell Distribution Width 20.2 % (13.2-15.2)
[2022-05-08 18:36] LABS: Anisocytosis 1+; Basophils % (Manual) 0 % (0.0-1.8); Total Cells Counted 100
[2022-05-08] MEDS: MIRTAZAPINE 15 MG TAB PO SCH (22:15)
--- NOTE | 2022-05-09 14:24 | Progress Note ---
Assessment and Plan Assessment/Plan: End-stage renal disease on hemodialysis Anemia of CKD Hypophosphatemia Hyperparathyroidism Urinary Tract Infection Acute Metabolic Encephalopathy Vascular Dementia Malnutrition Chronic Debility Leukopenia Status post PermCath placement per IR 05/04 Continue HD TTS or prn, due today Last labs reviewed, adjust dialysate prn No indication for binders Transfuse for hemoglobin less than 7 Epogen with HD as needed Renally dose medications ESRD diet with 1.2-1. 4 g/kg/d protein intake Subjective Date of service: 05/09/22 Principal diagnosis: Catheter malfunction Interval history: Resting in bed No acute events noted Vitals, labs and I/os reviewed Interdisciplinary notes and consults reviewed Objective - Exam Narrative Exam: Constitutional: no acute distress Head: NC/AT Neck: supple Lungs: clear to auscultation CV: RRR Abdomen: soft, non-tender, bowel sounds present Back: nontender Extremities: no edema, pulses WNL Skin: intact Neuro: Confused - Vital Signs Vital signs: Vital Signs - 12hr 05/09/22 05/09/22 05/09/22 04:58 06:40 10:40 Temperature 98.5 F 98.1 F Pulse Rate 79 75 Respiratory 16 18 Rate Blood Pressure 177/157 100/74 160/81 O2 Sat by Pulse 99 Oximetry O2 Sat by Pulse 100 Oximetry [ Anterior Bilateral] 05/09/22 05/09/22 05/09/22 10:50 11:00 11:15 Temperature Pulse Rate 68 64 65 Respiratory Rate Blood Pressure 161/74 139/69 139/69 O2 Sat by Pulse Oximetry O2 Sat by Pulse Oximetry [ Anterior Bilateral] 05/09/22 05/09/22 11:30 11:45 Temperature Pulse Rate 60 78 Respiratory Rate Blood Pressure 111/50 107/41 O2 Sat by Pulse Oximetry O2 Sat by Pulse Oximetry [ Anterior Bilateral] - Lab 05/08/22 15:20 05/08/22 15:20 Most recent lab results Calcium 8.6 mg/dL (8.4-10.2) 05/08/22 15:20 Phosphorus 1.60 mg/dL (2.5-4.5) L 05/02/22 23:31 Magnesium 1.60 mg/dL (1.7-2.3) L 05/03/22 13:15 Medications & Allergies - Medications Allergies/Adverse Reactions: Allergies morphine Adverse Reaction (Verified 05/02/22 10:21) "TREMBLING" Home Medications: Home Medications Medication Instructions Recorded Confirmed Last Taken Type AtorvaSTATin [Lipitor] 40 mg PO QHS 05/02/22 05/02/22 Unknown History Folic Acid [Folvite] 2 mg PO QDAY 05/02/22 05/02/22 Unknown History Metoprolol [Lopressor TAB] 25 mg PO BID 05/02/22 05/02/22 Unknown History Mirtazapine 7.5 mg PO QDAY 05/02/22 05/02/22 Unknown History QUEtiapine [SEROquel] 12.5 mg PO BID #60 tablet 05/07/22 Unknown Rx Active Medications: Generic Name Dose Route Start Last Admin Trade Name Freq PRN Reason Stop Dose Admin Acetaminophen 650 mg 05/01/22 18:21 Acetaminophen 325 Mg Tab PO Q4H PRN Pain MILD(1-3)/Fever >100.5/FRIAS Albuterol 2.5 mg 05/01/22 18:21 Albuterol 2.5 Mg/3 Ml Nebu IH Q4HRT PRN Shortness Of Breath Atorvastatin Calcium 40 mg 05/03/22 22:00 05/08/22 22:14 Atorvastatin 40 Mg Tab PO 40 mg QHS JARETH Administration Folic Acid 2 mg 05/03/22 10:00 05/08/22 09:13 Folic Acid 1 Mg Tab PO 2 mg QDAY JARETH Administration Hydromorphone HCl 0.5 mg 05/01/22 18:21 Hydromorphone 0.5 Mg/0.5 Ml Inj IV Q13H PRN Pain , Severe (7-10) Sodium Chloride 100 mls @ 999 mls/hr 05/02/22 12:52 Nacl 0.9% IV NICOLE PRN Hypotension Metoprolol Tartrate 25 mg 05/03/22 10:00 05/08/22 22:15 Metoprolol Tartrate 25 Mg Tab PO 25 mg BID JARETH Administration Mirtazapine 7.5 mg 05/03/22 22:00 05/08/22 22:15 Mirtazapine 15 Mg Tab PO 7.5 mg QHS JARETH Administration Ondansetron HCl 4 mg 05/01/22 18:21 Ondansetron 4 Mg/2 Ml Inj IV Q8H PRN Nausea And Vomiting Oxycodone/Acetaminophen 1 tab 05/01/22 18:21 Oxycodone /Acetaminophen 5-325mg Tab PO Q16H PRN Pain, Moderate (4-6) Quetiapine Fumarate 12.5 mg 05/04/22 22:00 05/08/22 22:14 Quetiapine 25 Mg Tab PO 12.5 mg BID JARETH Administration Sodium Chloride 10 ml 05/01/22 22:00 05/08/22 22:15 Sodium Chloride 0.9% 10 Ml Flush Syringe IV 10 ml BID JARETH Administration Sodium Chloride 10 ml 05/01/22 18:21 05/06/22 21:11 Sodium Chloride 0.9% 10 Ml Flush Syringe IV 10 ml PRN PRN Administration LINE FLUSH
[2022-05-09] MEDS: QUEtiapine 25 MG TAB PO SCH ×2 (15:53→23:06)
[2022-05-09] MEDS: FOLIC ACID 1 MG TAB PO SCH (15:53)
[2022-05-09] MEDS: METOPROLOL TARTRATE 25 MG TAB PO SCH ×2 (15:53→23:06)
--- NOTE | 2022-05-09 17:06 | Progress Note ---
Assessment and Plan Assessment and plan: This is a 81-year-old woman with end-stage renal disease on hemodialysis TTS, hypertension, hyperlipidemia and vascular dementia who was brought in by EMS due to 1 month history of increased confusion and weakness. Family also reported 1 day history of HD catheter dislodgment. Nephrology was consulted for ESRD management. Patient was admitted for further evaluation and management. 05/02: Status post PermCath placed today, patient getting hemodialysis, patient was very agitated and placed on restraint. Continue to follow clinically, repeat labs in the morning. Family requested placement, discussed with case management. 05/03: Discussed with family at the bedside, patient remains very confused and agitated, placed on restraint. We will also add Seroquel and as needed Haldol to relieve anxiety. Family requested placement -referral has sent out by case management. We will continue to follow 05/04: Reduce Seroquel dose as patient appears sleepy, continue restraint as needed. Pending placement. Continue to follow BMP. 05/05: clinically stable, pending placement. cont supportive care, HD per ranal team. cont abx total 7 days 05/06: clinically stable. last dose of abx tomorrow. follow clinically. discussed with CM and RN. HD per renal. Assessment and plan #Acute Metabolic encephalopathyresolved #Acute cystitis without hematuriaresolved #Baseline vascular dementia Treat UTI, supportive care, dialysis as per renal team, supportive care Restraint as needed. Placed on Seroquel and as needed Haldol Completed antibiotic course. Verbal prompting, verbal redirection, benzodiazepine therapy as clinically indicated. #End stage renal disease on hemodialysis #Malpositioned dialysis catheterresolved Nephrology consulted, HD per nephrology, monitor BMP Status post replacement of permacath by vascular surgery #Cerebral atherosclerosis Risk factor reduction, antiplatelet therapy as clinically indicated. #Moderate protein caloric malnutrition Increase protein intake when awake and alert only, dietary supplementation. #Chronic debility Fall precautions, supportive care. Family requested prison placement #Advanced care planning -Disease education conducted, care plan discussed, diagnoses discussed, prognosis discussed, and patient acknowledges understanding with care plan -Time: +30 min Disposition Plan: Pending discharge home tomorrow Total Time Spent with Patient (Minutes): 30 minutes History Interval history: No acute events overnight. Hospitalist Physical - Constitutional Vitals: Temp Pulse Resp BP Pulse Ox 98.9 F 81 22 127/76 100 09/22/22 13:50 05/09/22 13:50 05/09/22 13:50 05/09/22 13:50 05/09/22 13:50 General appearance: Present: no acute distress, well-nourished, other (Dementia at baseline) - EENT Eyes: Present: PERRL, EOM intact ENT: hearing intact, clear oral mucosa, edentulous - Neck Neck: Present: supple, normal ROM, other (Permacath in right upper chest) - Respiratory Respiratory effort: normal Respiratory: bilateral: CTA - Cardiovascular Rhythm: regular Heart Sounds: Present: S1 & S2 - Extremities Extremities: no ischemia, pulses intact, pulses symmetrical, No edema, normal temperature, normal color Peripheral Pulses: within normal limits - Abdominal General gastrointestinal: soft, non-tender, non-distended, normal bowel sounds - Integumentary Integumentary: Present: clear - Psychiatric Psychiatric: appropriate mood/affect, cooperative, other (Pleasantly demented) - Neurologic Neurologic: CNII-XII intact, moves all extremities - Allied Health Allied health notes reviewed: nursing Results - Labs CBC & Chem 7: 05/08/22 15:20 05/08/22 15:20 Labs: Laboratory Last Values WBC 2.0 K/mm3 (4.5-11.0) L 05/08/22 15:20 RBC 2.77 M/mm3 (3.65-5.03) L 05/08/22 15:20 Hgb 8.5 gm/dl (10.1-14.3) L 05/08/22 15:20 Hct 25.8 % (30.3-42.9) L 05/08/22 15:20 MCV 93 fl (79-97) 05/08/22 15:20 MCH 31 pg (28-32) 05/08/22 15:20 MCHC 33 % (30-34) 05/08/22 15:20 RDW 20.2 % (13.2-15.2) H 05/08/22 15:20 Plt Count 99 K/mm3 (140-440) L 05/08/22 15:20 [place] % (Auto) 2.0 % (0.0-7.3) 05/06/22 05:36 Eos % (Auto) 7.6 % (0.0-4.3) H 05/06/22 05:36 Eos # (Auto) 0.1 K/mm3 (0.0-0.4) 05/06/22 05:36 Add Manual Diff Complete 05/08/22 15:20 Total Counted 100 05/08/22 15:20 Seg Neutrophils % 41.0 % (40.0-70.0) 05/06/22 05:36 Seg Neuts % (Manual) 56.0 % (40.0-70.0) 05/08/22 15:20 Band Neutrophils % 0 % 05/08/22 15:20 Lymphocytes % (Manual) 37.0 % (13.4-35.0) H 05/08/22 15:20 Reactive Lymphs % (Man) 0 % 05/08/22 15:20 Monocytes % (Manual) 2.0 % (0.0-7.3) 05/08/22 15:20 Eosinophils % (Manual) 5.0 % (0.0-4.3) H 05/08/22 15:20 Basophils % (Manual) 0 % (0.0-1.8) 05/08/22 15:20 Metamyelocytes % 0 % 05/08/22 15:20 Myelocytes % 0 % 05/08/22 15:20 Promyelocytes % 0 % 05/08/22 15:20 Blast Cells % 0 % 05/08/22 15:20 Nucleated RBC % Not Reportable 05/08/22 15:20 Seg Neutrophils # 0.7 K/mm3 (1.8-7.7) L 05/06/22 05:36 Seg Neutrophils # Man 1.1 K/mm3 (1.8-7.7) L 05/08/22 15:20 Band Neutrophils # 0.0 K/mm3 05/08/22 15:20 Lymphocytes # (Manual) 0.7 K/mm3 (1.2-5.4) L 05/08/22 15:20 Abs React Lymphs (Man) 0.0 K/mm3 05/08/22 15:20 Monocytes # (Manual) 0.0 K/mm3 (0.0-0.8) 05/08/22 15:20 Eosinophils # (Manual) 0.1 K/mm3 (0.0-0.4) 05/08/22 15:20 Basophils # (Manual) 0.0 K/mm3 (0.0-0.1) 05/08/22 15:20 Metamyelocytes # 0.0 K/mm3 05/08/22 15:20 Myelocytes # 0.0 K/mm3 05/08/22 15:20 Promyelocytes # 0.0 K/mm3 05/08/22 15:20 Blast Cells # 0.0 K/mm3 05/08/22 15:20 WBC Morphology Not Reportable 05/08/22 15:20 Hypersegmented Neuts Not Reportable 05/08/22 15:20 Hyposegmented Neuts Not Reportable 05/08/22 15:20 Hypogranular Neuts Not Reportable 05/08/22 15:20 Hypersegmented Polys Cancelled 05/06/22 05:36 Smudge Cells Not Reportable 05/08/22 15:20 Toxic Granulation Not Reportable 05/08/22 15:20 Toxic Vacuolation Not Reportable 05/08/22 15:20 Dohle Bodies Not Reportable 05/08/22 15:20 Pelger-Huet Anomaly Not Reportable 05/08/22 15:20 Ciro Rods Not Reportable 05/08/22 15:20 Platelet Estimate Not Reportable 05/08/22 15:20 Clumped Platelets Not Reportable 05/08/22 15:20 Plt Clumps, EDTA Not Reportable 05/08/22 15:20 Large Platelets Not Reportable 05/08/22 15:20 Giant Platelets Not Reportable 05/08/22 15:20 Platelet Satelliting Not Reportable 05/08/22 15:20 Plt Morphology Comment Not Reportable 05/08/22 15:20 RBC Morphology Not Reportable 05/08/22 15:20 Dimorphic RBCs Not Reportable 05/08/22 15:20 Polychromasia Not Reportable 05/08/22 15:20 Hypochromasia Not Reportable 05/08/22 15:20 Poikilocytosis Not Reportable 05/08/22 15:20 Basophilic Stippling Cancelled 05/06/22 05:36 Anisocytosis 1+ 05/08/22 15:20 Microcytosis Rare 05/08/22 15:20 Macrocytosis Not Reportable 05/08/22 15:20 Spherocytes Not Reportable 05/08/22 15:20 Pappenheimer Bodies Not Reportable 05/08/22 15:20 Sickle Cells Not Reportable 05/08/22 15:20 Target Cells Not Reportable 05/08/22 15:20 Tear Drop Cells Not Reportable 05/08/22 15:20 Ovalocytes Not Reportable 05/08/22 15:20 Stomatocytes Cancelled 05/06/22 05:36 Helmet Cells Not Reportable 05/08/22 15:20 [place] Bodies Not Reportable 05/08/22 15:20 [place] Rings Not Reportable 05/08/22 15:20 Alex Cells Not Reportable 05/08/22 15:20 Bite Cells Not Reportable 05/08/22 15:20 Crenated Cell Not Reportable 05/08/22 15:20 Elliptocytes Not Reportable 05/08/22 15:20 Acanthocytes (Spur) Not Reportable 05/08/22 15:20 Rouleaux Not Reportable 05/08/22 15:20 Hemoglobin C Crystals Not Reportable 05/08/22 15:20 Schistocytes Not Reportable 05/08/22 15:20 Malaria parasites Not Reportable 05/08/22 15:20 [place] Bodies Not Reportable 05/08/22 15:20 Hem Pathologist Commnt No 05/08/22 15:20 Sodium 139 mmol/L (137-145) 05/08/22 15:20 Potassium 4.2 mmol/L (3.6-5.0) D 05/08/22 15:20 Chloride 101.9 mmol/L (98-107) 05/08/22 15:20 Carbon Dioxide 27 mmol/L (22-30) 05/08/22 15:20 Anion Gap 14 mmol/L 05/08/22 15:20 BUN 18 mg/dL (7-17) H 05/08/22 15:20 Creatinine 2.9 mg/dL (0.6-1.2) H 05/08/22 15:20 Estimated GFR 16 ml/min 05/08/22 15:20 BUN/Creatinine Ratio 6 % 05/08/22 15:20 Glucose 86 mg/dL (65-100) 05/08/22 15:20 POC Glucose 91 mg/dL (70-105) 05/09/22 16:22 Calcium 8.6 mg/dL (8.4-10.2) 05/08/22 15:20 Phosphorus 1.60 mg/dL (2.5-4.5) L 05/02/22 23:31 Magnesium 1.60 mg/dL (1.7-2.3) L 05/03/22 13:15 Total Bilirubin 0.30 mg/dL (0.1-1.2) 05/01/22 14:00 AST 10 units/L (5-40) 05/01/22 14:00 ALT < 5 units/L (7-56) L 05/01/22 14:00 Alkaline Phosphatase 101 units/L (35-129) 05/01/22 14:00 Total Protein 5.1 g/dL (6.3-8.2) L 05/01/22 14:00 Albumin 1.9 g/dL (3.9-5) L 05/01/22 14:00 Albumin/Globulin Ratio 0.6 % 05/01/22 14:00 PTH Intact 304.4 pg/mL (15-65) H 05/02/22 23:31 Urine Color Yellow (Yellow) 05/01/22 Unknown Urine Turbidity Cloudy (Clear) 05/01/22 Unknown Specific [place] (Man) 1.015 (1.003-1.030) 05/01/22 Unknown Ur Protein (Man) 2+ mg/dL (Negative) 05/01/22 Unknown Ur Ketones (Man) Negative (Negative) 05/01/22 Unknown Ur Nitrite (Man) Negative (Negative) 05/01/22 Unknown Ur Reducing Substances Not Reportable 05/01/22 Unknown Urine Bilirubin (Man) Negative (Negative) 05/01/22 Unknown Urine Ictotest Not Reportable 05/01/22 Unknown Leukocyte Esterase (Man) Small (Negative) 05/01/22 Unknown Urine WBC (Auto) 112.0 /HPF (0.0-6.0) H 05/01/22 Unknown Urine RBC (Auto) 3.0 /HPF (0.0-6.0) 05/01/22 Unknown U Epithel Cells (Auto) 9.0 /HPF (0-13.0) 05/01/22 Unknown Urine Bacteria (Auto) 4+ /HPF (Negative) 05/01/22 Unknown Urine RBC (Manual) Negative (Negative) 05/01/22 Unknown Urine WBC Clumps 3+ /HPF 05/01/22 Unknown Amorphous Crystals Few 05/01/22 Unknown Hyaline Casts 2 /LPF 05/01/22 Unknown SARS-CoV-2 (PCR) Negative (Negative) 05/08/22 12:00 Hepatitis A IgM Ab Non-reactive (NonReactive) 05/02/22 14:30 Hep Bs Antigen Non-reactive (Negative) 05/02/22 14:30 Hep B Core IgM Ab Non-reactive (NonReactive) 05/02/22 14:30 Hepatitis C Antibody Non-reactive (NonReactive) 05/02/22 14:30 Blood Type B POSITIVE 05/01/22 18:20 Antibody Screen Negative 05/01/22 18:20 Crossmatch See Detail 05/01/22 18:20 Solorzano/IV: Voiding Method Incontinent Active Medications - Current Medications Current Medications: Generic Name Dose Route Start Last Admin Trade Name Freq PRN Reason Stop Dose Admin Acetaminophen 650 mg 05/01/22 18:21 Acetaminophen 325 Mg Tab PO Q4H PRN Pain MILD(1-3)/Fever >100.5/FRIAS Albuterol 2.5 mg 05/01/22 18:21 Albuterol 2.5 Mg/3 Ml Nebu IH Q4HRT PRN Shortness Of Breath Atorvastatin Calcium 40 mg 05/03/22 22:00 05/08/22 22:14 Atorvastatin 40 Mg Tab PO 40 mg QHS JARETH Administration Folic Acid 2 mg 05/03/22 10:00 05/09/22 15:53 Folic Acid 1 Mg Tab PO 2 mg QDAY JARETH Administration Hydromorphone HCl 0.5 mg 05/01/22 18:21 Hydromorphone 0.5 Mg/0.5 Ml Inj IV Q13H PRN Pain , Severe (7-10) Sodium Chloride 100 mls @ 999 mls/hr 05/02/22 12:52 Nacl 0.9% IV NICOLE PRN Hypotension Metoprolol Tartrate 25 mg 05/03/22 10:00 05/09/22 15:53 Metoprolol Tartrate 25 Mg Tab PO 25 mg BID JARETH Administration Mirtazapine 7.5 mg 05/03/22 22:00 05/08/22 22:15 Mirtazapine 15 Mg Tab PO 7.5 mg QHS JARETH Administration Ondansetron HCl 4 mg 05/01/22 18:21 Ondansetron 4 Mg/2 Ml Inj IV Q8H PRN Nausea And Vomiting Oxycodone/Acetaminophen 1 tab 05/01/22 18:21 Oxycodone /Acetaminophen 5-325mg Tab PO Q16H PRN Pain, Moderate (4-6) Quetiapine Fumarate 12.5 mg 05/04/22 22:00 05/09/22 15:53 Quetiapine 25 Mg Tab PO 12.5 mg BID JARETH Administration Sodium Chloride 10 ml 05/01/22 22:00 05/08/22 22:15 Sodium Chloride 0.9% 10 Ml Flush Syringe IV 10 ml BID JARETH Administration Sodium Chloride 10 ml 05/01/22 18:21 05/06/22 21:11 Sodium Chloride 0.9% 10 Ml Flush Syringe IV 10 ml PRN PRN Administration LINE FLUSH Nutrition/Malnutrition Assess - Dietary Evaluation Nutrition/Malnutrition Findings: Nutrition Notes Start: 05/08/22 14:41 Freq: Status: Active Protocol: Document 05/08/22 14:41 MICHAEL (Rec: 05/08/22 14:53 MICHAEL [id number]) Nutrition Notes Need for Assessment generated from: LOS Initial or Follow up Assessment Current Diagnosis CKD (stage V CKD),Hypertension ,Malnutrition,Hyperlipidemia Other Pertinent Diagnosis ESRD+HD, HD Catheter Malfunction, UTI, Metabolic Encephalopathy, Debility, Current Diet Pureed -Renal & Cardiac- Diet (since L 05/03), D Suppl (from D 05/08). Labs/Tests 05/06: K 3.4, BUN 25, Crea 3.8 . Pertinent Medications 05/08: Folic acid, others nutritionally unremarkable. Height 5 ft 4 in Weight 54.431 kg [place] Body Weight (kg) 54.54 BMI 20.5 Intake Prior to Admission Good Weight change and time frame Pt denies having having loss body weight [employer]. Weight Status Appropriate Subjective/Other Information RD consult for LOS assessment. Pt's PO intake of meals has been Poor (25-50%), according to ADL notes. I will prescribe dietary supplements to compensate for Pt's poor or insufficient PO intake of meals during LOS. Pt is on Room Air, O2 saturation @ 97%, according to Physical Assessment History notes. Pt has missing teeth, according to Physical Assessment History notes. Pt is incontinent, according to Physical Assessment History notes. PermCath replacement on 05/04, well tolerated, according to Progress notes. Percent of energy/protein needs met: Prescribed Pureed -Renal & Cardiac- Diet provides for energy/protein needs (1,804 Kcal/77 g) during LOS; additionally, Dietary Supplements will compensate for possible poor or insufficient PO intake of meals with 1,275 Kcal and 57 g of protein. Burn Absent Trauma Absent GI Symptoms None Food Allergy No Skin Integrity/Comment HD Catheter replacement wound. Current % PO Poor (25-49%) Minimum of two criteria No Fluid Accumulation N/A Reduced Placement Coordinator Strength N/A (non-severe) Protein-Calorie Malnutrition N\A #2 Nutrition Diagnosis Inadequate protein-energy intake Etiology Ongoing and concomitant chronic metabolic conditions. As Evidenced by Signs and Symptoms Pt's PO intake of meals has been Poor (25-50%), according to ADL notes. Is patient on ventilator? No Is Patient Ambulatory and/or Out of Bed No REE-([place]-St. Jeor-confined to bed) 1200.300 Kcal/Kg value to use for calculation 26 Approximate Energy Requirements Using 1415 kcal/Kg Calculation Used for Recommendations Kcal/kg Additional Notes Protein: >1.2 g/Kg ABW; >65 g/ day. Fluids: 1 ml/Kcal, or as per MD. Nutrition Intervention Change Diet Order: Continue Pureed -Renal & Cardiac- Diet as tolerated. Add Supplement/Snack (indicate name/kcal Start 8 fl oz Nepro w/ /protein ) CARBSTEADY; TID. Provides kCal: 1,275 Provides Protein (gm) 57 Goal #1 Compensate, through dietary supplementation, for possible poor or insufficient PO intake of meals during LOS. Goal #2 Adjust the dietary intervention to better serve Pt's energy/protein needs and clinical conditions during LOS . Follow-Up By: 05/15/22 Additional Comments Continue monitoring food tolerance, %PO intake of meals , dietary supplements, and BM.
[2022-05-09] MEDS: MIRTAZAPINE 15 MG TAB PO SCH (23:06)
[2022-05-10 12:33] VITALS: BP 89/51
[2022-05-10] MEDS: QUEtiapine 25 MG TAB PO SCH (12:36)
[2022-05-10] MEDS: METOPROLOL TARTRATE 25 MG TAB PO SCH (12:37)
[2022-05-10] MEDS: FOLIC ACID 1 MG TAB PO SCH (12:37)
--- NOTE | 2022-05-10 14:19 | Progress Note ---
Assessment and Plan Assessment/Plan: End-stage renal disease on hemodialysis Anemia of CKD Hypophosphatemia Hyperparathyroidism Urinary Tract Infection Acute Metabolic Encephalopathy Vascular Dementia Malnutrition Chronic Debility Leukopenia Status post PermCath placement per IR 05/04 Continue HD TTS or prn, due tomorrow, no need for HD today Last labs reviewed, adjust dialysate prn No indication for binders Transfuse for hemoglobin less than 7 Epogen with HD as needed Renally dose medications ESRD diet with 1.2-1. 4 g/kg/d protein intake Outpatient HD: JENNIFER Matthews, note plans for [facility] placement [place] Subjective Date of service: 05/10/22 Principal diagnosis: Catheter malfunction Interval history: Resting in bed No acute events noted Vitals, labs and I/os reviewed Interdisciplinary notes and consults reviewed Objective - Exam Narrative Exam: Constitutional: no acute distress Head: NC/AT Neck: supple Lungs: clear to auscultation CV: RRR Abdomen: soft, non-tender, bowel sounds present Back: nontender Extremities: no edema, pulses WNL Skin: intact Neuro: Confused - Vital Signs Vital signs: Vital Signs - 12hr 05/10/22 05/10/22 04:28 12:01 Temperature 97.4 F L 98.2 F Pulse Rate 58 L 81 Respiratory 18 18 Rate Blood Pressure 89/51 Blood Pressure 128/51 [Left] O2 Sat by Pulse 92 98 Oximetry - Lab 05/08/22 15:20 05/08/22 15:20 Most recent lab results Calcium 8.6 mg/dL (8.4-10.2) 05/08/22 15:20 Phosphorus 1.60 mg/dL (2.5-4.5) L 05/02/22 23:31 Magnesium 1.60 mg/dL (1.7-2.3) L 05/03/22 13:15 Medications & Allergies - Medications Allergies/Adverse Reactions: Allergies morphine Adverse Reaction (Verified 05/02/22 10:21) "TREMBLING" Home Medications: Home Medications Medication Instructions Recorded Confirmed Last Taken Type AtorvaSTATin [Lipitor] 40 mg PO QHS 05/02/22 05/02/22 Unknown History Folic Acid [Folvite] 2 mg PO QDAY 05/02/22 05/02/22 Unknown History Metoprolol [Lopressor TAB] 25 mg PO BID 05/02/22 05/02/22 Unknown History Mirtazapine 7.5 mg PO QDAY 05/02/22 05/02/22 Unknown History QUEtiapine [SEROquel] 12.5 mg PO BID #60 tablet 05/07/22 Unknown Rx Active Medications: Generic Name Dose Route Start Last Admin Trade Name Freq PRN Reason Stop Dose Admin Acetaminophen 650 mg 05/01/22 18:21 Acetaminophen 325 Mg Tab PO Q4H PRN Pain MILD(1-3)/Fever >100.5/FRIAS Albuterol 2.5 mg 05/01/22 18:21 Albuterol 2.5 Mg/3 Ml Nebu IH Q4HRT PRN Shortness Of Breath Atorvastatin Calcium 40 mg 05/03/22 22:00 05/09/22 23:06 Atorvastatin 40 Mg Tab PO 40 mg QHS JARETH Administration Folic Acid 2 mg 05/03/22 10:00 05/10/22 12:37 Folic Acid 1 Mg Tab PO 2 mg QDAY JARETH Administration Hydromorphone HCl 0.5 mg 05/01/22 18:21 Hydromorphone 0.5 Mg/0.5 Ml Inj IV Q13H PRN Pain , Severe (7-10) Sodium Chloride 100 mls @ 999 mls/hr 05/02/22 12:52 Nacl 0.9% IV NICOLE PRN Hypotension Metoprolol Tartrate 25 mg 05/03/22 10:00 05/10/22 12:37 Metoprolol Tartrate 25 Mg Tab PO 25 mg BID JARETH Administration Mirtazapine 7.5 mg 05/03/22 22:00 05/09/22 23:06 Mirtazapine 15 Mg Tab PO 7.5 mg QHS JARETH Administration Ondansetron HCl 4 mg 05/01/22 18:21 Ondansetron 4 Mg/2 Ml Inj IV Q8H PRN Nausea And Vomiting Oxycodone/Acetaminophen 1 tab 05/01/22 18:21 Oxycodone /Acetaminophen 5-325mg Tab PO Q16H PRN Pain, Moderate (4-6) Quetiapine Fumarate 12.5 mg 05/04/22 22:00 05/10/22 12:36 Quetiapine 25 Mg Tab PO 12.5 mg BID JARETH Administration Sodium Chloride 10 ml 05/01/22 22:00 05/10/22 12:57 Sodium Chloride 0.9% 10 Ml Flush Syringe IV Not Given BID JARETH Sodium Chloride 10 ml 05/01/22 18:21 05/06/22 21:11 Sodium Chloride 0.9% 10 Ml Flush Syringe IV 10 ml PRN PRN Administration LINE FLUSH
--- NOTE | 2022-05-10 19:11 | Event Note ---
Date: 05/10/22 Please refer to discharge summary on 05/07/[address] Vizcarra.
== END 2022-05-10 15:12 | DRG 673 ==
LOC: ED 10:09 → 3A 18:21
PROVIDERS: ADMIT Internal Medicine; ATTEND Student in an Organized Health Care Education/Training Program
PROC: 0JH63XZ Insertion of Tunneled Vascular Access Device into Chest Subcutaneous Tissue and Fascia, Percutaneous Approach (ICD-10-PCS; principal; 2022-05-02)
PROC: 02H633Z Insertion of Infusion Device into Right Atrium, Percutaneous Approach (ICD-10-PCS; 2022-05-02)
PROC: B5181ZA Fluoroscopy of Superior Vena Cava using Low Osmolar Contrast, Guidance (ICD-10-PCS; 2022-05-02)
PROC: B548ZZA Ultrasonography of Superior Vena Cava, Guidance (ICD-10-PCS; 2022-05-02)
PROC: 30233N1 Transfusion of Nonautologous Red Blood Cells into Peripheral Vein, Percutaneous Approach (ICD-10-PCS; 2022-05-02)
PROC: 5A1D70Z Performance of Urinary Filtration, Intermittent, Less than 6 Hours Per Day (ICD-10-PCS; 2022-05-02)
PROC: 5A1D70Z Performance of Urinary Filtration, Intermittent, Less than 6 Hours Per Day (ICD-10-PCS; 2022-05-07)
PROC: 5A1D70Z Performance of Urinary Filtration, Intermittent, Less than 6 Hours Per Day (ICD-10-PCS; 2022-05-09)
DX: T82.42XA Displacement of vascular dialysis catheter, initial encounter (principal); G93.41 Metabolic encephalopathy; N18.6 End stage renal disease; I12.0 Hypertensive chronic kidney disease with stage 5 chronic kidney disease or end stage renal disease; E44.0 Moderate protein-calorie malnutrition; N30.00 Acute cystitis without hematuria; Z20.822 Contact with and (suspected) exposure to COVID-19; E11.22 Type 2 diabetes mellitus with diabetic chronic kidney disease; Z99.2 Dependence on renal dialysis; E78.5 Hyperlipidemia, unspecified; F01.50 Vascular dementia, unspecified severity, without behavioral disturbance, psychotic disturbance, mood disturbance, and anxiety; I67.2 Cerebral atherosclerosis; D63.1 Anemia in chronic kidney disease; E21.3 Hyperparathyroidism, unspecified; D72.819 Decreased white blood cell count, unspecified; R53.81 Other malaise; K21.9 Gastro-esophageal reflux disease without esophagitis; Z83.3 Family history of diabetes mellitus; Z82.49 Family history of ischemic heart disease and other diseases of the circulatory system; Y92.89 Other specified places as the place of occurrence of the external cause
CPT/HCPCS: 36415; 36558; 70450; 71045; 71250; 77001; 80048; 80053; 80074; 81001; 82270; 82962; 83735; 83970; 84100; 85007; 85025; 85027; 86850; 86900; 86901; 86920; 87040; 93005; 96365; 99285; G0378; J3490; C1750; C1751; C1769; J0696; J1644; J2250; J7040; P9016; Q9967; U0003

== ENCOUNTER 2022-05-14 09:16 | Inpatient (IN) | payer MEDICARE, MEDICAID ==
--- NOTE | 2022-05-14 10:57 | XRay Report ---
CHEST 1 VIEW 05/14/2022 10:24 AM INDICATION / CLINICAL INFORMATION: dislodged diaylsis port. COMPARISON: 05/01/2022 FINDINGS: SUPPORT DEVICES: None. HEART / MEDIASTINUM: No significant abnormality. LUNGS / PLEURA: No significant pulmonary or pleural abnormality. No pneumothorax. ADDITIONAL FINDINGS: No significant additional findings. IMPRESSION: 1. No acute findings. No change since 05/01/2022. Signer Name: Volodymyr Bergman Jr, MD Signed: 05/14/2022 10:53 AM Workstation Name: [id number]
--- NOTE | 2022-05-14 11:18 | Emergency Department Report ---
ED General Adult HPI - General Chief complaint: Medical Clearance Stated complaint: REMOVED DIALYSIS PORT Time Seen by Provider: 05/14/22 10:04 Source: patient, EMS, RN notes reviewed (snf paperwork) Mode of arrival: Stretcher Limitations: No Limitations - History of Present Illness Initial comments: 81-year female the past medical history of dementia and end-stage renal disease on dialysis (T,THURS,SAT) and did not other chronic medical conditions presents from [facility] to the hospital complaints of dislodged chest dialysis catheter. Patient apparently pulled out her dialysis port as per the [facility] resident transfer form. Patient is oriented to self only. She denies pain. No distress noted. She is unable to provide any details of history of present illness due to underlying dementia pt is not on blood thinners as per MS paperwork MAR review Severity scale (0 -10): 0 - Related Data Home Medications Medication Instructions Recorded Confirmed Last Taken AtorvaSTATin [Lipitor] 40 mg PO QHS 05/02/22 05/02/22 Unknown Folic Acid [Folvite] 2 mg PO QDAY 05/02/22 05/02/22 Unknown Metoprolol [Lopressor TAB] 25 mg PO BID 05/02/22 05/02/22 Unknown Mirtazapine 7.5 mg PO QDAY 05/02/22 05/02/22 Unknown Previous Rx's Medication Instructions Recorded Last Taken Type QUEtiapine [SEROquel] 12.5 mg PO BID #60 tablet 05/07/22 Unknown Rx Allergies Allergy/AdvReac Type Severity Reaction Status Date / Time morphine AdvReac "TREMBLING" Verified 05/14/22 09:26 ED Review of Systems ROS: Stated complaint: REMOVED DIALYSIS PORT Other details as noted in HPI Comment: Unobtainable due to pts medical conditions (Limited secondary to dementia) ED Past Medical Hx - Past Medical History Hx Hypertension: Yes Hx Diabetes: Yes - Social History Smoking Status: Unknown if ever smoked Substance Use Type: None - Medications Home Medications: Home Medications Medication Instructions Recorded Confirmed Last Taken Type AtorvaSTATin [Lipitor] 40 mg PO QHS 05/02/22 05/02/22 Unknown History Folic Acid [Folvite] 2 mg PO QDAY 05/02/22 05/02/22 Unknown History Metoprolol [Lopressor TAB] 25 mg PO BID 05/02/22 05/02/22 Unknown History Mirtazapine 7.5 mg PO QDAY 05/02/22 05/02/22 Unknown History QUEtiapine [SEROquel] 12.5 mg PO BID #60 tablet 05/07/22 Unknown Rx ED Physical Exam - General Limitations: No Limitations - Other Other exam information: General: No acute distress Head: Atraumatic Eyes: normal appearance ENT: Moist mucous membranes Neck: Normal appearance, no midline tenderness Chest: Clear to auscultation bilaterally, right inferior subclavian wound noted from recently dislodged dialysis catheter. No drainage or active bleeding. CV: Regular rate and rhythm Abdomen: Soft, normal bowel sounds, nontender, nondistended, no rebound or guarding Back: Normal inspection Extremity: Normal inspection, full range of motion Neuro: Alert O x 1 Psych: Appropriate behavior Skin: No rash ED Course Vital Signs 05/14/22 05/14/22 05/14/22 09: 09:46 12:29 Temperature 97.7 F 98.0 F Pulse Rate 60 58 L 58 L Respiratory 18 16 14 Rate Blood Pressure 172/57 Blood Pressure 147/58 167/69 154/56 [Left] O2 Sat by Pulse 99 97 98 Oximetry - Consultations Consultation #1: 05/14/[address] Smith who plans to replace dialysis catheter tomorrow if patient does not require emergent dialysis ED Medical Decision Making - Lab Data Result diagrams: 05/14/22 13:21 05/14/22 13:21 Lab Results 05/14/22 05/14/22 05/14/22 Range/Units 13:21 13:21 13:21 WBC 1.9 L* (4.5-11.0) K/mm3 RBC 2.41 L (3.65-5.03) M/mm3 Hgb 7.3 L (10.1-14.3) gm/dl Hct 22.2 L (30.3-42.9) % MCV 92 (79-97) fl MCH 30 (28-32) pg MCHC 33 (30-34) % RDW 21.2 H (13.2-15.2) % Plt Count 155 (140-440) K/mm3 PT 14.6 (12.2-14.9) Sec. INR 1.00 (0.87-1.13) APTT 27.1 (24.2-36.6) Sec. Sodium 138 (137-145) mmol/L Potassium 3.7 (3.6-5.0) mmol/L Chloride 100.9 (98-107) mmol/L Carbon Dioxide 27 (22-30) mmol/L Anion Gap 14 mmol/L BUN 26 H (7-17) mg/dL Creatinine 3.5 H (0.6-1.2) mg/dL Estimated GFR 13 ml/min BUN/Creatinine Ratio 7 % Glucose 77 (65-100) mg/dL Calcium 8.9 (8.4-10.2) mg/dL - Radiology Data Radiology results: report reviewed CHEST 1 VIEW 05/14/2022 10:24 AM INDICATION / CLINICAL INFORMATION: dislodged diaylsis port. COMPARISON: 05/01/2022 FINDINGS: SUPPORT DEVICES: None. HEART / MEDIASTINUM: No significant abnormality. LUNGS / PLEURA: No significant pulmonary or pleural abnormality. No pneumothorax. ADDITIONAL FINDINGS: No significant additional findings. IMPRESSION: 1. No acute findings. No change since 05/01/2022. - Medical Decision Making 81-year-old female presents to the hospital with dislodged right chest wall dialysis catheter. Patient apparently has a history of pulling out her catheter secondary to underlying dementia. Patient is due for dialysis today but patient does not require emergent dialysis at this time based on labs and chest x-ray. Hospitalist to admit. Vascular plans to replace catheter tomorrow Patient has leukopenia which is chronic compared to previous labs Critical Care Time: No Critical care attestation.: If time is entered above; I have spent that time in minutes in the direct care of this critically ill patient, excluding procedure time. ED Disposition Clinical Impression: Encounter for dialysis catheter care, Dementia, ESRD (end stage renal disease) on dialysis Disposition: 09 ADMITTED INPATIENT Is pt being admited?: No Condition: Stable Time of Disposition: 14:52
[2022-05-14] MEDS ORDERED: diphenhydrAMINE 50 MG/ML VIAL IM ONE (12:13)
[2022-05-14 13:36] LABS: Hematocrit 22.2 % (30.3-42.9); Hemoglobin 7.3 gm/dl (10.1-14.3); Mean Corpuscular HGB Conc 33 % (30-34); Mean Corpuscular Volume 92 fl (79-97); Platelet Count 155 K/mm3 (140-440); Red Blood Count 2.41 M/mm3 (3.65-5.03)
[2022-05-14 13:43] LABS: Red Cell Distribution Width 21.2 % (13.2-15.2)
--- NOTE | 2022-05-14 13:46 | Event Note ---
Date: 05/14/22 81-year-old demented patient with end-stage renal disease who has pulled out multiple PermCath in the past. She now presents after dislodging another PermCath and removing it. Plan for PermCath placement tomorrow. N.p.o. after midnight except sips of water with meds.
[2022-05-14 13:47] LABS: Partial Thromboplastin Time 27.1 Sec. (24.2-36.6)
[2022-05-14 13:50] LABS: Calcium 8.9 mg/dL (8.4-10.2)
[2022-05-14 14:15] LABS: Basophils % (Manual) 0 % (0.0-1.8); Total Cells Counted 50
[2022-05-14 14:16] LABS: Anisocytosis 1+; Platelet Estimate Consistent w Auto; Toxic Granulation 1+
[2022-05-14 14:28] LABS: Smudge Cells Few
[2022-05-14] MEDS ORDERED: oxyCODONE /ACETAMINOPHEN 5-325MG TAB PO PRN (14:40)
--- NOTE | 2022-05-14 14:40 | History and Physical Report ---
History of Present Illness Chief complaint: She pulled her catheter out History of present illness: 81 YO Female [facility] Resident at [facility] with Vascular Dementia, Cerebral Atherosclerosis, HTN, HLD, ESRD on HD(T,R,Sa) presents to ED for evaluation. Patient is confused with diminished cognition at the time my evaluation is unable to provide history. Patient history provided by EMS staff, ED staff, as well as jail facility staff. As per staff the patient was found to have a dislodged dialysis catheter. Patient is unable undergo dialysis. . EMS was notified and upon arrival the patient was found to be in distress and subsequently transported to [facility] for further care and evaluation of the aforementioned symptoms. The patient was seen and evaluated in the emergency department. All lab and imaging studies reviewed. Patient was found to have end-stage renal disease in need of dialysis, metabolic encephalopathy, as well as dislodgment of dialysis catheter. Vascular surgery team notified in ED. patient has diminished cognition but has a positive gag reflex and is able to protect her airway without difficulty. Prior admission on 05/01/2022 reviewed. No medication listed at time of admission for reconciliation. Advanced care planning conduct ed in ED. Past History Past Medical History: ESRD, other (See HPI) Past Surgical History: Other (Dialysis access) Social history: single. denies: smoking, alcohol abuse, prescription drug abuse Family history: hypertension Medications and Allergies Allergies Allergy/AdvReac Type Severity Reaction Status Date / Time morphine AdvReac "TREMBLING" Verified 05/14/22 09:26 Home Medications Medication Instructions Recorded Confirmed Last Taken Type AtorvaSTATin [Lipitor] 40 mg PO QHS 05/02/22 05/02/22 Unknown History Folic Acid [Folvite] 2 mg PO QDAY 05/02/22 05/02/22 Unknown History Metoprolol [Lopressor TAB] 25 mg PO BID 05/02/22 05/02/22 Unknown History Mirtazapine 7.5 mg PO QDAY 05/02/22 05/02/22 Unknown History QUEtiapine [SEROquel] 12.5 mg PO BID #60 tablet 05/07/22 Unknown Rx Review of Systems ROS unobtainable: due to mental status Exam - Constitutional Vitals: Temp Pulse Resp BP Pulse Ox 98.0 F 58 L 14 154/56 98 05/14/22 09:46 05/14/22 12:29 05/14/22 12:29 05/14/22 12:29 05/14/22 12:29 General appearance: Present: mild distress, cachectic - EENT Eyes: Present: PERRL ENT: clear oral mucosa, hearing decreased - Neck Neck: Present: supple, normal ROM - Respiratory Respiratory effort: normal Respiratory: bilateral: CTA - Cardiovascular Heart Sounds: Present: S1 & S2. Absent: rub, click - Extremities Extremities: pulses symmetrical, No edema Peripheral Pulses: within normal limits - Abdominal General gastrointestinal: Present: soft, non-tender, non-distended, normal bowel sounds Female genitourinary: Present: normal - Integumentary Integumentary: Present: clear, warm, dry - Musculoskeletal Musculoskeletal: generalized weakness - Psychiatric Psychiatric: no appropriate mood/affect, no intact judgment & insight, no memory intact - Neurologic Neurologic: no focal deficits, moves all extremities, no gait normal Results - Labs CBC & Chem 7: 05/14/22 13:21 05/14/22 13:21 Labs: Abnormal lab results 05/14/22 05/14/22 Range/Units 13:21 13:21 WBC 1.9 L* (4.5-11.0) K/mm3 RBC 2.41 L (3.65-5.03) M/mm3 Hgb 7.3 L (10.1-14.3) gm/dl Hct 22.2 L (30.3-42.9) % RDW 21.2 H (13.2-15.2) % Eosinophils % (Manual) 6.0 H (0.0-4.3) % Nucleated RBC % 2.0 H (0.0-0.9) % Seg Neutrophils # Man 1.1 L (1.8-7.7) K/mm3 Lymphocytes # (Manual) 0.6 L (1.2-5.4) K/mm3 BUN 26 H (7-17) mg/dL Creatinine 3.5 H (0.6-1.2) mg/dL Assessment and Plan - Patient Problems (1) ESRD (end stage renal disease) on dialysis Current Visit: Yes Status: Acute Plan to address problem: Nephrology team consulted in ED, dialysis per renal team, supportive care, monitor fluid balance, avoid nephrotoxic agents. (2) Cerebral atherosclerosis Current Visit: No Status: Acute Plan to address problem: Verbal prompting, verbal redirection, benzodiazepine therapy as clinically indicated (3) Complications, dialysis, catheter, mechanical Current Visit: No Status: Acute Qualifiers: Encounter type: initial encounter Qualified Code(s): T82.49XA - Other complication of vascular dialysis catheter, initial encounter Plan to address problem: Vascular surgery service consulted. Patient pending replacement of dialysis catheter. (4) Debility Current Visit: No Status: Acute Plan to address problem: Supportive care, chronic, fall precautions. (5) Metabolic encephalopathy Current Visit: No Status: Acute (6) Vascular dementia Current Visit: No Status: Acute Qualifiers: Dementia behavioral disturbance: without behavioral disturbance Qualified Code(s): F01.50 - Vascular dementia without behavioral disturbance Plan to address problem: Verbal prompting, verbal redirection, benzodiazepine therapy as clinically indicated (7) DVT prophylaxis Current Visit: No Status: Acute Plan to address problem: SCD to bilateral lower extremities while in bed (8) Advance care planning Current Visit: No Status: Acute Plan to address problem: Disease education conducted, care plan discussed, diagnoses discussed, patient is full code, +30 minutes. (9) Preventative health care Current Visit: Yes Status: Acute Plan to address problem: Safety precautions, jail facility staff advised to cover dialysis c atheter with occlusive binder to prevent dislodgment. +30 minutes.
[2022-05-14] MEDS ORDERED: ACETAMINOPHEN 325 MG TAB PO PRN (15:00)
[2022-05-14] MEDS ORDERED: ONDANSETRON 4 MG/2 ML INJ IV PRN (15:00)
[2022-05-14] MEDS ORDERED: HYDROmorphone 0.5 MG/0.5 ML INJ IV PRN (15:00)
[2022-05-14] MEDS ORDERED: ALBUTEROL 2.5 MG/3 ML NEBU IH PRN (16:00)
[2022-05-15] MEDS: METOPROLOL TARTRATE 25 MG TAB PO SCH ×4 (09:48→22:25)
[2022-05-15] MEDS: FOLIC ACID 1 MG TAB PO SCH (09:48)
[2022-05-15] MEDS: QUEtiapine 25 MG TAB PO SCH ×3 (09:49→22:23)
[2022-05-15] MEDS ORDERED: NON-FORMULARY EACH (Mirtazapine [Mirtazapine] 7.5 MG Tablet) PO SCH (10:00)
[2022-05-15] MEDS ORDERED: LIDOCAINE (2%) 20 MG/1 ML VIAL 20 ML MDV INFILTRATI ONE (12:57)
[2022-05-15] MEDS ORDERED: HEPARIN/NS 5000 UNIT/500ML 500 ML IR ONE (12:57)
[2022-05-15] MEDS ORDERED: HEPARIN 10,000 UNIT/1 ML VIAL ONE ×2 (12:57→13:00)
--- NOTE | 2022-05-15 12:59 | Consultation ---
History of Present Illness - Reason for Consult Consult date: 05/15/22 end stage renal disease - History of Present Illness Mrs. Mckay is an 81y yo with ESRD on HD, atrial fibrillation, CVA who presents to the ED from SNF as patient noted to have dislodged permcath. Past History Past Medical History: atrial fib, anemia, ESRD, stroke Past Surgical History: Other (Dialysis access; Displaced supracondylar fracture s/p IM nail fixation) Social history: denies: smoking, alcohol abuse, prescription drug abuse Family history: hypertension Medications and Allergies Allergies Allergy/AdvReac Type Severity Reaction Status Date / Time morphine AdvReac "TREMBLING" Verified 05/14/22 09:26 Home Medications Medication Instructions Recorded Confirmed Last Taken Type AtorvaSTATin [Lipitor] 40 mg PO QHS 05/02/22 05/15/22 Unknown History Folic Acid [Folvite] 2 mg PO QDAY 05/02/22 05/15/22 Unknown History Metoprolol [Lopressor TAB] 25 mg PO BID 05/02/22 05/15/22 Unknown History Mirtazapine 7.5 mg PO QDAY 05/02/22 05/15/22 Unknown History QUEtiapine [SEROquel] 12.5 mg PO BID #60 tablet 05/07/22 05/15/22 Unknown Rx Active Meds: Active Medications Acetaminophen (Acetaminophen 325 Mg Tab) 650 mg PO Q4H PRN PRN Reason: Pain MILD(1-3)/Fever >100.5/FRIAS Albuterol (Albuterol 2.5 Mg/3 Ml Nebu) 2.5 mg IH Q4HRT PRN PRN Reason: Shortness Of Breath Atorvastatin Calcium (Atorvastatin 40 Mg Tab) 40 mg PO QHS [facility] Folic Acid (Folic Acid 1 Mg Tab) 2 mg PO QDAY [facility] Last Admin: 05/15/22 09:48 Dose: 2 mg Hydromorphone HCl (Hydromorphone 0.5 Mg/0.5 Ml Inj) 0.5 mg IV Q13H PRN PRN Reason: Pain , Severe (7-10) Metoprolol Tartrate (Metoprolol Tartrate 25 Mg Tab) 25 mg PO BID [facility] Last Admin: 05/15/22 12:02 Dose: 25 mg Mirtazapine (Mirtazapine 15 Mg Tab) 7.5 mg PO QHS [facility] Ondansetron HCl (Ondansetron 4 Mg/2 Ml Inj) 4 mg IV Q8H PRN PRN Reason: Nausea And Vomiting Oxycodone/Acetaminophen (Oxycodone /Acetaminophen 5-325mg Tab) 1 tab PO Q6H PRN PRN Reason: Pain, Moderate (4-6) Quetiapine Fumarate (Quetiapine 25 Mg Tab) 12.5 mg PO BID [facility] Last Admin: 05/15/22 12:02 Dose: 12.5 mg Sodium Chloride (Sodium Chloride 0.9% 10 Ml Flush Syringe) 10 ml IV BID [facility] Last Admin: 05/15/22 12:02 Dose: 10 ml Sodium Chloride (Sodium Chloride 0.9% 10 Ml Flush Syringe) 10 ml IV PRN PRN PRN Reason: LINE FLUSH Review of Systems All systems: negative Exam - Vital Signs Vital signs: Vital Signs Temp Pulse Resp BP Pulse Ox 97.7 F 60 18 147/58 99 05/14/22 09:22 05/14/22 09:22 05/14/22 09:22 05/14/22 09:22 05/14/22 09:22 - General Appearance General appearance: well-developed, well-nourished EENT: ATNC Respiratory: Clear to Ascultation Heart: regular, S1S2 Gastrointestinal: Present: normal. Absent: tenderness, distended Integumentary: warm and dry Neurologic: other (no edema) Results - Lab Results 05/14/22 13:21 05/15/22 23:18 Most recent lab results Calcium 8.9 mg/dL (8.4-10.2) 05/14/22 13:21 Assessment and Plan Impression: * End stage renal disease * Dislodged permcath * Hx of left [employer] stroke with associated dysphagia/dysarthria and right * Atrial fibrillation * Hypertension * Pancytopenia Plan: * Permcath reinsertion per IR/Vascular surgery * HD today as patient did not received treatment on 05/14 * Continue TTS tomorrow * UF as tolerated * Rate control/anticoagulation per primary team * Dose medications for renal function * AM labs
[2022-05-15] MEDS ORDERED: SODIUM CHLORIDE 0.9% 100 ML IV PRN (13:00)
[2022-05-15] MEDS ORDERED: EPOETIN ALFA-EPBX 20,000 UNIT/1 ML VIAL IV PRN (13:06)
--- NOTE | 2022-05-15 13:26 | Progress Note ---
Assessment and Plan Assessment and plan: #ESRD (end stage renal disease) on dialysis #Complication of dialysis catheter -outpatient on TTS schedule -access: permacath pulled by patient -Vascular surgery following, will replace permacath today -HD after permacath replacement -Nephrology consulted, assistance appreciated #Dementia #Acute metabolic encephalopathy -waxes and wanes -verbal promting, redirection when needed -maintain sleep/awake cycle -continue seroquel at home doses #Neutropenia #Normocytic anemia -chronic -patient currently afebrile -will continue to monitor for signs of infection -will transfuse for Hgb less than 7 #Debility -patient bed bound -continue fall precautions #Discharge planning -patient was a resident at [facility], they do not want her to come back -CM/SW aware, will await safe discharge disposition -placed a call to the patients' NOK son Nilesh Sapp at [phone], voicemail left History Interval history: No acute events overnight per nursing. Patient appears to be alert and oriented x2. She denies any pain or discomfort at this time. Hospitalist Physical - Physical exam Narrative exam: GENERAL: Thin elderly woman. In no acute distress. HEENT: Normocephalic. Atraumatic. NECK: Supple. CHEST/LUNGS: CTAB on room air HEART/CARDIOVASCULAR: RRR. No murmur, rubs or gallops appreciated. ABDOMEN: +BS. NT/ND. SKIN: No rashes noted. NEURO: No focal motor deficit. Patient following simple commands. MUSCULOSKELETAL: No joint effusion EXTREMITIES: No cyanosis, clubbing or edema. PSYCH: Cooperative. Answers questions appropriately. - Constitutional Vitals: Temp Pulse Resp BP Pulse Ox 98.0 F 66 18 167/72 96 05/14/22 09:46 05/14/22 17:25 05/15/22 11:44 05/14/22 17:25 05/15/22 11:44 General appearance: Present: mild distress, cachectic Results - Labs CBC & Chem 7: 05/14/22 13:21 05/14/22 13:21 Labs: Laboratory Last Values WBC 1.9 K/mm3 (4.5-11.0) L* 05/14/22 13:21 RBC 2.41 M/mm3 (3.65-5.03) L 05/14/22 13:21 Hgb 7.3 gm/dl (10.1-14.3) L 05/14/22 13:21 Hct 22.2 % (30.3-42.9) L 05/14/22 13:21 MCV 92 fl (79-97) 05/14/22 13:21 MCH 30 pg (28-32) 05/14/22 13:21 MCHC 33 % (30-34) 05/14/22 13:21 RDW 21.2 % (13.2-15.2) H 05/14/22 13:21 Plt Count 155 K/mm3 (140-440) 05/14/22 13:21 Add Manual Diff Complete 05/14/22 13:21 Total Counted 50 05/14/22 13:21 Seg Neuts % (Manual) 60.0 % (40.0-70.0) 05/14/22 13:21 Band Neutrophils % 0 % 05/14/22 13:21 Lymphocytes % (Manual) 32.0 % (13.4-35.0) 05/14/22 13:21 Reactive Lymphs % (Man) 0 % 05/14/22 13:21 Monocytes % (Manual) 2.0 % (0.0-7.3) 05/14/22 13:21 Eosinophils % (Manual) 6.0 % (0.0-4.3) H 05/14/22 13:21 Basophils % (Manual) 0 % (0.0-1.8) 05/14/22 13:21 Metamyelocytes % 0 % 05/14/22 13:21 Myelocytes % 0 % 05/14/22 13:21 Promyelocytes % 0 % 05/14/22 13:21 Blast Cells % 0 % 05/14/22 13:21 Nucleated RBC % 2.0 % (0.0-0.9) H 05/14/22 13:21 Seg Neutrophils # Man 1.1 K/mm3 (1.8-7.7) L 05/14/22 13:21 Band Neutrophils # 0.0 K/mm3 05/14/22 13:21 Lymphocytes # (Manual) 0.6 K/mm3 (1.2-5.4) L 05/14/22 13:21 Abs React Lymphs (Man) 0.0 K/mm3 05/14/22 13:21 Monocytes # (Manual) 0.0 K/mm3 (0.0-0.8) 05/14/22 13:21 Eosinophils # (Manual) 0.1 K/mm3 (0.0-0.4) 05/14/22 13:21 Basophils # (Manual) 0.0 K/mm3 (0.0-0.1) 05/14/22 13:21 Metamyelocytes # 0.0 K/mm3 05/14/22 13:21 Myelocytes # 0.0 K/mm3 05/14/22 13:21 Promyelocytes # 0.0 K/mm3 05/14/22 13:21 Blast Cells # 0.0 K/mm3 05/14/22 13:21 WBC Morphology Not Reportable 05/14/22 13:21 Hypersegmented Neuts Not Reportable 05/14/22 13:21 Hyposegmented Neuts Not Reportable 05/14/22 13:21 Hypogranular Neuts Not Reportable 05/14/22 13:21 Smudge Cells Few 05/14/22 13:21 Toxic Granulation 1+ 05/14/22 13:21 Toxic Vacuolation Not Reportable 05/14/22 13:21 Dohle Bodies Not Reportable 05/14/22 13:21 Pelger-Huet Anomaly Not Reportable 05/14/22 13:21 Ciro Rods Not Reportable 05/14/22 13:21 Platelet Estimate Consistent w auto 05/14/22 13:21 Clumped Platelets Not Reportable 05/14/22 13:21 Plt Clumps, EDTA Not Reportable 05/14/22 13:21 Large Platelets Not Reportable 05/14/22 13:21 Giant Platelets Not Reportable 05/14/22 13:21 Platelet Satelliting Not Reportable 05/14/22 13:21 Plt Morphology Comment Not Reportable 05/14/22 13:21 RBC Morphology Not Reportable 05/14/22 13:21 Dimorphic RBCs Not Reportable 05/14/22 13:21 Polychromasia Not Reportable 05/14/22 13:21 Hypochromasia Not Reportable 05/14/22 13:21 Poikilocytosis Not Reportable 05/14/22 13:21 Anisocytosis 1+ 05/14/22 13:21 Microcytosis Not Reportable 05/14/22 13:21 Macrocytosis Not Reportable 05/14/22 13:21 Spherocytes Not Reportable 05/14/22 13:21 Pappenheimer Bodies Not Reportable 05/14/22 13:21 Sickle Cells Not Reportable 05/14/22 13:21 Target Cells Not Reportable 05/14/22 13:21 Tear Drop Cells Not Reportable 05/14/22 13:21 Ovalocytes Not Reportable 05/14/22 13:21 Helmet Cells Not Reportable 05/14/22 13:21 [place] Bodies Not Reportable 05/14/22 13:21 [place] Rings Not Reportable 05/14/22 13:21 [place] Cells Not Reportable 05/14/22 13:21 Bite Cells Not Reportable 05/14/22 13:21 Crenated Cell Not Reportable 05/14/22 13:21 Elliptocytes Not Reportable 05/14/22 13:21 Acanthocytes (Spur) Not Reportable 05/14/22 13:21 Rouleaux Not Reportable 05/14/22 13:21 Hemoglobin C Crystals Not Reportable 05/14/22 13:21 Schistocytes Not Reportable 05/14/22 13:21 Malaria parasites Not Reportable 05/14/22 13:21 [place] Bodies Not Reportable 05/14/22 13:21 Hem Pathologist Commnt No 05/14/22 13:21 PT 14.6 Sec. (12.2-14.9) 05/14/22 13:21 INR 1.00 (0.87-1.13) 05/14/22 13:21 APTT 27.1 Sec. (24.2-36.6) 05/14/22 13:21 Sodium 138 mmol/L (137-145) 05/14/22 13:21 Potassium 3.7 mmol/L (3.6-5.0) 05/14/22 13:21 Chloride 100.9 mmol/L (98-107) 05/14/22 13:21 Carbon Dioxide 27 mmol/L (22-30) 05/14/22 13:21 Anion Gap 14 mmol/L 05/14/22 13:21 BUN 26 mg/dL (7-17) H 05/14/22 13:21 Creatinine 3.5 mg/dL (0.6-1.2) H 09/27/22 13:21 Estimated GFR 13 ml/min 05/14/22 13:21 BUN/Creatinine Ratio 7 % 05/14/22 13:21 Glucose 77 mg/dL (65-100) 05/14/22 13:21 Calcium 8.9 mg/dL (8.4-10.2) 05/14/22 13:21 Solorzano/IV: Voiding Method Incontinent Active Medications - Current Medications Current Medications: Generic Name Dose Route Start Last Admin Trade Name Freq PRN Reason Stop Dose Admin Acetaminophen 650 mg 05/14/22 15:00 Acetaminophen 325 Mg Tab PO Q4H PRN Pain MILD(1-3)/Fever >100.5/FRIAS Albuterol 2.5 mg 05/14/22 16:00 Albuterol 2.5 Mg/3 Ml Nebu IH Q4HRT PRN Shortness Of Breath Atorvastatin Calcium 40 mg 05/14/22 22:00 Atorvastatin 40 Mg Tab PO QHS [facility] Epoetin Nate-epbx 20,000 unit 05/15/22 14:00 Epoetin Nate-Epbx 10,000 Unit/1 Ml Vial IV NICOLE PRN Hemodialysis Folic Acid 2 mg 05/15/22 10:00 05/15/22 09:48 Folic Acid 1 Mg Tab PO 2 mg QDAY JARETH Administration Hydromorphone HCl 0.5 mg 05/14/22 15:00 Hydromorphone 0.5 Mg/0.5 Ml Inj IV Q13H PRN Pain , Severe (7-10) Sodium Chloride 100 mls @ 999 mls/hr 05/15/22 13:00 Nacl 0.9% IV NICOLE PRN Hypotension Metoprolol Tartrate 25 mg 05/14/22 22:00 05/15/22 12:02 Metoprolol Tartrate 25 Mg Tab PO 25 mg BID JARETH Administration Mirtazapine 7.5 mg 05/14/22 22:00 Mirtazapine 15 Mg Tab PO QHS JARETH Ondansetron HCl 4 mg 05/14/22 15:00 Ondansetron 4 Mg/2 Ml Inj IV Q8H PRN Nausea And Vomiting Oxycodone/Acetaminophen 1 tab 05/14/22 14:40 Oxycodone /Acetaminophen 5-325mg Tab PO Q6H PRN Pain, Moderate (4-6) Quetiapine Fumarate 12.5 mg 05/14/22 22:00 05/15/22 12:02 Quetiapine 25 Mg Tab PO 12.5 mg BID JARETH Administration Sodium Chloride 10 ml 05/14/22 22:00 05/15/22 12:02 Sodium Chloride 0.9% 10 Ml Flush Syringe IV 10 ml BID JARETH Administration Sodium Chloride 10 ml 05/14/22 15:00 Sodium Chloride 0.9% 10 Ml Flush Syringe IV PRN PRN LINE FLUSH
[2022-05-15] MEDS ORDERED: EPOETIN ALFA-EPBX 10,000 UNIT/1 ML VIAL IV PRN (14:00)
--- NOTE | 2022-05-15 15:05 | Operative Report ---
Operative Report Operative Report: Date of Procedure: 05/15/2022 Pre-operative Diagnosis: Complications of Dialysis Access Post-operative Diagnosis: Same Procedure(s): 1. Placement of 19 cm Glidepath Permacath 2. Radiologic Supervision with Interpretation Surgeon: Tomasz Hernandez M.D. Bottomer Operator: Roxane Anesthesia: 2% Lidocaine EBL: Minimal Counts: Correct Complications: None Condition: Stable Findings: Right internal jugular permacath was placed with the distal tip in the right atrium. Specimen: None Indication: The patient is an 81-year-old female with a history of end-stage renal disease who has been on hemodialysis through a right internal jugular permacath. The patient has baseline dementia and has dislodged her catheter on multiple occasions. She presented to the emergency department with a dislodged permacath and requires replacement. Her son was given the risk, benefits, and alternative procedures and consented to the procedure. Description of Procedure: The patient was brought to the [facility] and laid in supine position. Her right neck and chest were then prepped and draped in normal sterile fashion. I used the 0.035 stiff Glidewire and initially advanced it through the exit site on the chest. Upon advancing the wire it exited through the previous entry site on the neck. I evaluated the neck and realized that the neck incision had not healed and had dehisced. I applied Betadine to the incision and then held manual pressure as I advanced the Glidewire. The guidewire eventually into the denny otomy and the internal jugular vein and I advanced it into the SVC. I used a vertebral catheter and advanced the wire catheter into the IVC to anchor the wire. I removed the catheter and then serially dilated up the tract including the venotomy. I then advanced the 19 cm Glidepath Permacath over the wire and into the right atrium. I removed the wire and stylette and then aspirated and flushed both ports. Both ports easily aspirated and flushed. I then primed the catheters with the appropriate amount heparin. The catheter was then secured in position with a 2-0 Ethilon in interrupted fashion. I used 4-0 chromic in interrupted fashion to close the neck incision. I dressed the neck incision with Dermabond and the new sterile dressings to dress the catheter. Final fluoroscopy demonstrated the catheter was in adequate position with the distal tip in the right atrium and no evidence of pneumothorax. The patient tolerated the procedure well and was transported to her room in stable condition.
[2022-05-15] MEDS: MIRTAZAPINE 15 MG TAB PO SCH (22:25)
[2022-05-16 00:15] LABS: Calcium 8.1 mg/dL (8.4-10.2)
[2022-05-16] MEDS ORDERED: SODIUM CHLORIDE 0.9% 100 ML IV PRN (05:43)
--- NOTE | 2022-05-16 08:04 | Progress Note ---
Assessment and Plan Assessment and plan: #ESRD (end stage renal disease) on dialysis #Complication of dialysis catheter -outpatient on TTS schedule -access: permacath pulled by patient -Permacath replacement on 05/16 by Vascular surgery -continue HD while inpatient -Nephrology consulted, assistance appreciated #Dementia #Acute metabolic encephalopathy -waxes and wanes -verbal promting, redirection when needed -maintain sleep/awake cycle -continue seroquel at home doses #Neutropenia #Normocytic anemia -chronic -patient currently afebrile -will continue to monitor for signs of infection -will transfuse for Hgb less than 7 #Debility -patient bed bound -continue fall precautions #Discharge planning -patient was a resident at [facility], they do not want her to come back -CM/SW aware, will await safe discharge disposition History Interval history: No acute events overnight per nursing. Patient was placed in restraints due to history of pulling out her permacath after placement. Patient did not answer questions this morning. She appears to be comfortable. Hospitalist Physical - Physical exam Narrative exam: GENERAL: Thin elderly woman. In no acute distress. HEENT: Normocephalic. Atraumatic. NECK: R sided permacath. CHEST/LUNGS: CTAB on room air HEART/CARDIOVASCULAR: RRR. No murmur, rubs or gallops appreciated. ABDOMEN: +BS. NT/ND. SKIN: No rashes noted. NEURO: No focal motor deficit. Patient following simple commands. MUSCULOSKELETAL: No joint effusion EXTREMITIES: No cyanosis, clubbing or edema. PSYCH: Patient alert to person. - Constitutional Vitals: Temp Pulse Resp BP Pulse Ox 99.7 F H 64 19 150/58 94 05/16/22 06:12 05/16/22 06:12 05/16/22 06:12 05/16/22 06:12 05/16/22 06:12 Results - Labs CBC & Chem 7: 05/14/22 13:21 05/15/22 23:18 Labs: Laboratory Last Values WBC 1.9 K/mm3 (4.5-11.0) L* 05/14/22 13:21 RBC 2.41 M/mm3 (3.65-5.03) L 05/14/22 13:21 Hgb 7.3 gm/dl (10.1-14.3) L 05/14/22 13:21 Hct 22.2 % (30.3-42.9) L 05/14/22 13:21 MCV 92 fl (79-97) 05/14/22 13:21 MCH 30 pg (28-32) 05/14/22 13:21 MCHC 33 % (30-34) 05/14/22 13:21 RDW 21.2 % (13.2-15.2) H 05/14/22 13:21 Plt Count 155 K/mm3 (140-440) 05/14/22 13:21 Add Manual Diff Complete 05/14/22 13:21 Total Counted 50 05/14/22 13:21 Seg Neuts % (Manual) 60.0 % (40.0-70.0) 05/14/22 13:21 Band Neutrophils % 0 % 05/14/22 13:21 Lymphocytes % (Manual) 32.0 % (13.4-35.0) 05/14/22 13:21 Reactive Lymphs % (Man) 0 % 05/14/22 13:21 Monocytes % (Manual) 2.0 % (0.0-7.3) 05/14/22 13:21 Eosinophils % (Manual) 6.0 % (0.0-4.3) H 05/14/22 13:21 Basophils % (Manual) 0 % (0.0-1.8) 05/14/22 13:21 Metamyelocytes % 0 % 05/14/22 13:21 Myelocytes % 0 % 05/14/22 13:21 Promyelocytes % 0 % 05/14/22 13:21 Blast Cells % 0 % 05/14/22 13:21 Nucleated RBC % 2.0 % (0.0-0.9) H 05/14/22 13:21 Seg Neutrophils # Man 1.1 K/mm3 (1.8-7.7) L 05/14/22 13:21 Band Neutrophils # 0.0 K/mm3 05/14/22 13:21 Lymphocytes # (Manual) 0.6 K/mm3 (1.2-5.4) L 05/14/22 13:21 Abs React Lymphs (Man) 0.0 K/mm3 05/14/22 13:21 Monocytes # (Manual) 0.0 K/mm3 (0.0-0.8) 05/14/22 13:21 Eosinophils # (Manual) 0.1 K/mm3 (0.0-0.4) 05/14/22 13:21 Basophils # (Manual) 0.0 K/mm3 (0.0-0.1) 05/14/22 13:21 Metamyelocytes # 0.0 K/mm3 05/14/22 13:21 Myelocytes # 0.0 K/mm3 05/14/22 13:21 Promyelocytes # 0.0 K/mm3 05/14/22 13:21 Blast Cells # 0.0 K/mm3 05/14/22 13:21 WBC Morphology Not Reportable 05/14/22 13:21 Hypersegmented Neuts Not Reportable 05/14/22 13:21 Hyposegmented Neuts Not Reportable 05/14/22 13:21 Hypogranular Neuts Not Reportable 05/14/22 13:21 Smudge Cells Few 05/14/22 13:21 Toxic Granulation 1+ 05/14/22 13:21 Toxic Vacuolation Not Reportable 05/14/22 13:21 Dohle Bodies Not Reportable 05/14/22 13:21 Pelger-Huet Anomaly Not Reportable 05/14/22 13:21 Ciro Rods Not Reportable 05/14/22 13:21 Platelet Estimate Consistent w auto 05/14/22 13:21 Clumped Platelets Not Reportable 05/14/22 13:21 Plt Clumps, EDTA Not Reportable 05/14/22 13:21 Large Platelets Not Reportable 05/14/22 13:21 Giant Platelets Not Reportable 05/14/22 13:21 Platelet Satelliting Not Reportable 05/14/22 13:21 Plt Morphology Comment Not Reportable 05/14/22 13:21 RBC Morphology Not Reportable 05/14/22 13:21 Dimorphic RBCs Not Reportable 05/14/22 13:21 Polychromasia Not Reportable 05/14/22 13:21 Hypochromasia Not Reportable 05/14/22 13:21 Poikilocytosis Not Reportable 05/14/22 13:21 Anisocytosis 1+ 05/14/22 13:21 Microcytosis Not Reportable 05/14/22 13:21 Macrocytosis Not Reportable 05/14/22 13:21 Spherocytes Not Reportable 05/14/22 13:21 Pappenheimer Bodies Not Reportable 05/14/22 13:21 Sickle Cells Not Reportable 05/14/22 13:21 Target Cells Not Reportable 05/14/22 13:21 Tear Drop Cells Not Reportable 05/14/22 13:21 Ovalocytes Not Reportable 05/14/22 13:21 Helmet Cells Not Reportable 05/14/22 13:21 [place] Bodies Not Reportable 05/14/22 13:21 [place] Rings Not Reportable 05/14/22 13:21 [place] Cells Not Reportable 05/14/22 13:21 Bite Cells Not Reportable 05/14/22 13:21 Crenated Cell Not Reportable 05/14/22 13:21 Elliptocytes Not Reportable 05/14/22 13:21 Acanthocytes (Spur) Not Reportable 05/14/22 13:21 Rouleaux Not Reportable 05/14/22 13:21 Hemoglobin C Crystals Not Reportable 05/14/22 13:21 Schistocytes Not Reportable 05/14/22 13:21 Malaria parasites Not Reportable 05/14/22 13:21 [place] Bodies Not Reportable 05/14/22 13:21 Hem Pathologist Commnt No 05/14/22 13:21 PT 14.6 Sec. (12.2-14.9) 05/14/22 13:21 INR 1.00 (0.87-1.13) 05/14/22 13:21 APTT 27.1 Sec. (24.2-36.6) 05/14/22 13:21 Sodium 140 mmol/L (137-145) 05/15/22 23:18 Potassium 3.3 mmol/L (3.6-5.0) L 05/15/22 23:18 Chloride 103.6 mmol/L (98-107) 05/15/22 23:18 Carbon Dioxide 28 mmol/L (22-30) 05/15/22 23:18 Anion Gap 12 mmol/L 05/15/22 23:18 BUN 11 mg/dL (7-17) 05/15/22 23:18 Creatinine 2.1 mg/dL (0.6-1.2) H 05/15/22 23:18 Estimated GFR 23 ml/min 05/15/22 23:18 BUN/Creatinine Ratio 5 % 05/15/22 23:18 Glucose 67 mg/dL (65-100) 05/15/22 23:18 Calcium 8.1 mg/dL (8.4-10.2) L 05/15/22 23:18 Solorzano/IV: Voiding Method Incontinent Active Medications - Current Medications Current Medications: Generic Name Dose Route Start Last Admin Trade Name Freq PRN Reason Stop Dose Admin Acetaminophen 650 mg 05/14/22 15:00 Acetaminophen 325 Mg Tab PO Q4H PRN Pain MILD(1-3)/Fever >100.5/FRIAS Albuterol 2.5 mg 05/14/22 16:00 Albuterol 2.5 Mg/3 Ml Nebu IH Q4HRT PRN Shortness Of Breath Atorvastatin Calcium 40 mg 05/14/22 22:00 05/15/22 22:24 Atorvastatin 40 Mg Tab PO 40 mg QHS JARETH Administration Epoetin Nate-epbx 20,000 unit 05/15/22 14:00 Epoetin Nate-Epbx 10,000 Unit/1 Ml Vial IV NICOLE PRN Hemodialysis Folic Acid 2 mg 05/15/22 10:00 05/15/22 09:48 Folic Acid 1 Mg Tab PO 2 mg QDAY JARETH Administration Hydromorphone HCl 0.5 mg 05/14/22 15:00 Hydromorphone 0.5 Mg/0.5 Ml Inj IV Q13H PRN Pain , Severe (7-10) Sodium Chloride 100 mls @ 999 mls/hr 05/16/22 05:43 Nacl 0.9% IV NICOLE PRN Hypotension Metoprolol Tartrate 25 mg 05/14/22 22:00 05/15/22 22:25 Metoprolol Tartrate 25 Mg Tab PO 25 mg BID JARETH Administration Mirtazapine 7.5 mg 05/14/22 22:00 05/15/22 22:25 Mirtazapine 15 Mg Tab PO 7.5 mg QHS JARTEH Administration Ondansetron HCl 4 mg 05/14/22 15:00 Ondansetron 4 Mg/2 Ml Inj IV Q8H PRN Nausea And Vomiting Oxycodone/Acetaminophen 1 tab 05/14/22 14:40 Oxycodone /Acetaminophen 5-325mg Tab PO Q6H PRN Pain, Moderate (4-6) Quetiapine Fumarate 12.5 mg 05/14/22 22:00 05/15/22 22:23 Quetiapine 25 Mg Tab PO 12.5 mg BID JARETH Administration Sodium Chloride 10 ml 05/14/22 22:00 05/15/22 22:26 Sodium Chloride 0.9% 10 Ml Flush Syringe IV 10 ml BID JARETH Administration Sodium Chloride 10 ml 05/14/22 15:00 Sodium Chloride 0.9% 10 Ml Flush Syringe IV PRN PRN LINE FLUSH Nutrition/Malnutrition Assess - Dietary Evaluation Nutrition/Malnutrition Findings: Nutrition Notes Start: 05/15/22 13:39 Freq: Status: Active Protocol: Document 05/15/22 13:39 CM (Rec: 05/15/22 13:42 CM [id number]) Co-Sign 05/15/22 13:39 WW Nutrition Notes Need for Assessment generated from: conciliator Initial or Follow up Brief Note Current Diagnosis Acute Kidney Injury,CKD (stage V CKD),Hypertension, Hyperlipidemia Other Pertinent Diagnosis AMS, Dementia, Cerebral atherosclerosis Current Diet NPO Labs/Tests 05/15: BUN 26 Cr 3.5 Pertinent Medications 05/15: Folic Acid Height 5 ft 3 in Weight 51.908 kg [place] Body Weight (kg) 52.27 BMI 20.2 Intake Prior to Admission Good Weight change and time frame No unintentional wt loss VICE PRINCIPAL admission per malnutrition screening tool assessment. Weight Status Underweight Subjective/Other Information RD consult for skin risk assessment. Pt inappropriate for conversation at time of visit d/t AMS. RN reported there is no concern for integumentary system at this time - only has dry skin. No information regarding integumentary system per physical assessment. Burn Absent Trauma Absent GI Symptoms None Food Allergy No Skin Integrity/Comment WNL per RN Nutrition Intervention Change Diet Order: Pt diet to advance to renal diet when feasible. Follow-Up By: 05/20/22 Additional Comments Monitor diet advancement, wt status, and nutrition-related lab values.
[2022-05-16] MEDS: QUEtiapine 25 MG TAB PO SCH ×2 (10:51→21:56)
--- NOTE | 2022-05-16 13:58 | Progress Note ---
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 * Atrial fibrillation * Hypertension * Pancytopenia Plan: * Patient is s/p HD yesterday as patient did not received treatment on 05/14 * HD today to resume outpatient TTS schedule * UF as tolerated * Rate control/anticoagulation per primary team * Dose medications for renal function * AM labs Subjective Date of service: 05/16/22 Interval history: Patient without complaint Objective - Vital Signs Vital signs: Vital Signs - 12hr 05/16/22 05/16/22 05/16/22 06:12 08:31 10:00 Temperature 99.7 F H Pulse Rate 64 Respiratory 19 Rate Blood Pressure 150/58 O2 Sat by Pulse 94 96 96 Oximetry O2 Sat by Pulse Oximetry [ Bilateral Throughout] 05/16/22 05/16/22 05/16/22 10:38 10:39 10:45 Temperature 98.6 F Pulse Rate 62 58 L 67 Respiratory 18 Rate Blood Pressure 163/55 137/50 172/49 O2 Sat by Pulse Oximetry O2 Sat by Pulse 98 Oximetry [ Bilateral Throughout] 05/16/22 05/16/22 05/16/22 11:00 11:15 11:30 Temperature Pulse Rate 67 65 73 Respiratory Rate Blood Pressure 140/48 126/49 132/59 O2 Sat by Pulse Oximetry O2 Sat by Pulse Oximetry [ Bilateral Throughout] 05/16/22 05/16/22 05/16/22 11:45 12:00 12:15 Temperature Pulse Rate 65 72 62 Respiratory Rate Blood Pressure 135/53 119/55 126/57 O2 Sat by Pulse Oximetry O2 Sat by Pulse Oximetry [ Bilateral Throughout] 05/16/22 05/16/22 05/16/22 12:30 12:45 13:00 Temperature Pulse Rate 60 74 71 Respiratory Rate Blood Pressure 115/54 112/68 127/52 O2 Sat by Pulse Oximetry O2 Sat by Pulse Oximetry [ Bilateral Throughout] 05/16/22 05/16/22 05/16/22 13:15 13:30 13:45 Temperature Pulse Rate 58 L 69 62 Respiratory Rate Blood Pressure 128/63 121/52 128/55 O2 Sat by Pulse Oximetry O2 Sat by Pulse Oximetry [ Bilateral Throughout] - General Appearance General appearance: well-developed, well-nourished EENT: ATNC Cardiology: regular, S1S2 Integumentary: warm and dry Musculoskeletal: other (no edema) Psychiatric: cooperative - Lab 05/14/22 13:21 05/15/22 23:18 Most recent lab results Calcium 8.1 mg/dL (8.4-10.2) L 05/15/22 23:18 Medications & Allergies - Medications Allergies/Adverse Reactions: Allergies morphine Adverse Reaction (Verified 05/14/22 09:26) "TREMBLING" Home Medications: Home Medications Medication Instructions Recorded Confirmed Last Taken Type AtorvaSTATin [Lipitor] 40 mg PO QHS 05/02/22 05/15/22 Unknown History Folic Acid [Folvite] 2 mg PO QDAY 05/02/22 05/15/22 Unknown History Metoprolol [Lopressor TAB] 25 mg PO BID 05/02/22 05/15/22 Unknown History Mirtazapine 7.5 mg PO QDAY 05/02/22 05/15/22 Unknown History QUEtiapine [SEROquel] 12.5 mg PO BID #60 tablet 05/07/22 05/15/22 Unknown Rx Active Medications: Generic Name Dose Route Start Last Admin Trade Name Freq PRN Reason Stop Dose Admin Acetaminophen 650 mg 05/14/22 15:00 Acetaminophen 325 Mg Tab PO Q4H PRN Pain MILD(1-3)/Fever >100.5/FRIAS Albuterol 2.5 mg 05/14/22 16:00 Albuterol 2.5 Mg/3 Ml Nebu IH Q4HRT PRN Shortness Of Breath Atorvastatin Calcium 40 mg 05/14/22 22:00 05/15/22 22:24 Atorvastatin 40 Mg Tab PO 40 mg QHS JARETH Administration Epoetin Nate-epbx 20,000 unit 05/15/22 14:00 Epoetin Nate-Epbx 10,000 Unit/1 Ml Vial IV NICOLE PRN Hemodialysis Folic Acid 2 mg 05/15/22 10:00 05/15/22 09:48 Folic Acid 1 Mg Tab PO 2 mg QDAY JARETH Administration Hydromorphone HCl 0.5 mg 05/14/22 15:00 Hydromorphone 0.5 Mg/0.5 Ml Inj IV Q13H PRN Pain , Severe (7-10) Sodium Chloride 100 mls @ 999 mls/hr 05/16/22 05:43 Nacl 0.9% IV NICOLE PRN Hypotension Metoprolol Tartrate 25 mg 05/14/22 22:00 05/15/22 22:25 Metoprolol Tartrate 25 Mg Tab PO 25 mg BID JARETH Administration Mirtazapine 7.5 mg 05/14/22 22:00 05/15/22 22:25 Mirtazapine 15 Mg Tab PO 7.5 mg QHS JARETH Administration Ondansetron HCl 4 mg 05/14/22 15:00 Ondansetron 4 Mg/2 Ml Inj IV Q8H PRN Nausea And Vomiting Oxycodone/Acetaminophen 1 tab 05/14/22 14:40 Oxycodone /Acetaminophen 5-325mg Tab PO Q6H PRN Pain, Moderate (4-6) Quetiapine Fumarate 12.5 mg 05/14/22 22:00 05/15/22 22:23 Quetiapine 25 Mg Tab PO 12.5 mg BID JARETH Administration Sodium Chloride 10 ml 05/14/22 22:00 05/15/22 22:26 Sodium Chloride 0.9% 10 Ml Flush Syringe IV 10 ml BID JARETH Administration Sodium Chloride 10 ml 05/14/22 15:00 Sodium Chloride 0.9% 10 Ml Flush Syringe IV PRN PRN LINE FLUSH
[2022-05-16] MEDS: METOPROLOL TARTRATE 25 MG TAB PO SCH ×2 (14:51→21:57)
[2022-05-16] MEDS: FOLIC ACID 1 MG TAB PO SCH (14:51)
[2022-05-16] MEDS: MIRTAZAPINE 15 MG TAB PO SCH (21:56)
--- NOTE | 2022-05-17 10:56 | Progress Note ---
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 associated dysphagia/dysarthria and right * Atrial fibrillation * Hypertension * Pancytopenia Plan: * HD--resume outpatient TTS schedule * UF as tolerated * Rate control/anticoagulation per primary team * Dose medications for renal function * AM labs * ok to dc from renal standpoint Subjective Interval history: Patient without complaint Objective General appearance: well-developed, well-nourished EENT: ATNC Cardiology: regular, S1S2 Integumentary: warm and dry Musculoskeletal: other (no edema) Psychiatric: cooperative Objective - Vital Signs Vital signs: Vital Signs - 12hr 05/17/22 05/17/22 00:01 04:47 Temperature 98.3 F 98.9 F Pulse Rate 71 71 Respiratory 18 20 Rate Blood Pressure 150/51 Blood Pressure 139/58 [Left] O2 Sat by Pulse 97 94 Oximetry - Lab 05/14/22 13:21 05/15/22 23:18 Most recent lab results Calcium 8.1 mg/dL (8.4-10.2) L 05/15/22 23:18 Medications & Allergies - Medications Allergies/Adverse Reactions: Allergies morphine Adverse Reaction (Verified 05/14/22 09:26) "TREMBLING" Home Medications: Home Medications Medication Instructions Recorded Confirmed Last Taken Type AtorvaSTATin [Lipitor] 40 mg PO QHS 05/02/22 05/15/22 Unknown History Folic Acid [Folvite] 2 mg PO QDAY 05/02/22 05/15/22 Unknown History Metoprolol [Lopressor TAB] 25 mg PO BID 05/02/22 05/15/22 Unknown History Mirtazapine 7.5 mg PO QDAY 05/02/22 05/15/22 Unknown History QUEtiapine [SEROquel] 12.5 mg PO BID #60 tablet 05/07/22 05/15/22 Unknown Rx Active Medications: Generic Name Dose Route Start Last Admin Trade Name Freq PRN Reason Stop Dose Admin Acetaminophen 650 mg 05/14/22 15:00 Acetaminophen 325 Mg Tab PO Q4H PRN Pain MILD(1-3)/Fever >100.5/FRIAS Albuterol 2.5 mg 05/14/22 16:00 Albuterol 2.5 Mg/3 Ml Nebu IH Q4HRT PRN Shortness Of Breath Atorvastatin Calcium 40 mg 05/14/22 22:00 05/16/22 21:55 Atorvastatin 40 Mg Tab PO 40 mg QHS JARETH Administration Epoetin Nate-epbx 20,000 unit 05/15/22 14:00 05/16/22 14:15 Epoetin Nate-Epbx 10,000 Unit/1 Ml Vial IV 20,000 unit NICOLE PRN Administration Hemodialysis Folic Acid 2 mg 05/15/22 10:00 05/16/22 14:51 Folic Acid 1 Mg Tab PO 2 mg QDAY JARETH Administration Hydromorphone HCl 0.5 mg 05/14/22 15:00 Hydromorphone 0.5 Mg/0.5 Ml Inj IV Q13H PRN Pain , Severe (7-10) Sodium Chloride 100 mls @ 999 mls/hr 05/16/22 05:43 Nacl 0.9% IV NICOLE PRN Hypotension Metoprolol Tartrate 25 mg 05/14/22 22:00 05/16/22 21:57 Metoprolol Tartrate 25 Mg Tab PO 25 mg BID JARETH Administration Mirtazapine 7.5 mg 05/14/22 22:00 05/16/22 21:56 Mirtazapine 15 Mg Tab PO 7.5 mg QHS JARETH Administration Ondansetron HCl 4 mg 05/14/22 15:00 Ondansetron 4 Mg/2 Ml Inj IV Q8H PRN Nausea And Vomiting Oxycodone/Acetaminophen 1 tab 05/14/22 14:40 Oxycodone /Acetaminophen 5-325mg Tab PO Q6H PRN Pain, Moderate (4-6) Quetiapine Fumarate 12.5 mg 05/14/22 22:00 05/16/22 21:56 Quetiapine 25 Mg Tab PO 12.5 mg BID JARETH Administration Sodium Chloride 10 ml 05/14/22 22:00 05/16/22 21:57 Sodium Chloride 0.9% 10 Ml Flush Syringe IV 10 ml BID JARETH Administration Sodium Chloride 10 ml 05/14/22 15:00 Sodium Chloride 0.9% 10 Ml Flush Syringe IV PRN PRN LINE FLUSH
[2022-05-17] MEDS: METOPROLOL TARTRATE 25 MG TAB PO SCH ×2 (12:00→21:43)
[2022-05-17] MEDS: QUEtiapine 25 MG TAB PO SCH ×2 (12:00→21:44)
[2022-05-17] MEDS: FOLIC ACID 1 MG TAB PO SCH (12:00)
--- NOTE | 2022-05-17 13:07 | Progress Note ---
Assessment and Plan Assessment and plan: #ESRD (end stage renal disease) on dialysis #Complication of dialysis catheter -outpatient on TTS schedule -access: permacath pulled by patient -Permacath replacement on 05/16 by Vascular surgery -continue HD while inpatient -Nephrology consulted, assistance appreciated #Dementia #Acute metabolic encephalopathy -waxes and wanes -verbal promting, redirection when needed -maintain sleep/awake cycle -continue seroquel at home doses #Neutropenia #Normocytic anemia -chronic -patient currently afebrile -will continue to monitor for signs of infection -will transfuse for Hgb less than 7 #Debility -patient bed bound -continue fall precautions #Advanced care planning -Disease education, care plan, diagnosis, prognosis discussed with next of kin Nilesh Sapp (son) via phone ([phone]). He understands that there is a possibility that the patient my pull the catheter again given her dementia. He would like to continue with dialysis as he wants her to live. He wants to take her home once he is able to find a family member to be present with the patient at all times. Family understands and acknowledges current plan. -Time: +30 minutes #Discharge planning -patient was a resident at [facility], they do not want her to come back -Plan to send patient home with son and home health services; CM/SW aware History Interval history: No acute events overnight per nursing. Patient sleeping the easily to awaken by touch. She states "good morning I am hungry". She denies current pain and discomfort. Hospitalist Physical - Physical exam Narrative exam: GENERAL: Thin elderly woman. In no acute distress. HEENT: Normocephalic. Atraumatic. NECK: R sided permacath. CHEST/LUNGS: CTAB on room air HEART/CARDIOVASCULAR: RRR. No murmur, rubs or gallops appreciated. ABDOMEN: +BS. NT/ND. SKIN: No rashes noted. NEURO: No focal motor deficit. Patient following simple commands. MUSCULOSKELETAL: No joint effusion EXTREMITIES: No cyanosis, clubbing or edema. PSYCH: Patient alert to person. - Constitutional Vitals: Temp Pulse Resp BP Pulse Ox 97.6 F 68 20 138/52 98 05/17/22 11:34 05/17/22 11:34 05/17/22 11:34 05/17/22 11:34 05/17/22 11:34 Results - Labs CBC & Chem 7: 05/14/22 13:21 05/15/22 23:18 Labs: Laboratory Last Values WBC 1.9 K/mm3 (4.5-11.0) L* 05/14/22 13:21 RBC 2.41 M/mm3 (3.65-5.03) L 05/14/22 13:21 Hgb 7.3 gm/dl (10.1-14.3) L 05/14/22 13:21 Hct 22.2 % (30.3-42.9) L 05/14/22 13:21 MCV 92 fl (79-97) 05/14/22 13:21 MCH 30 pg (28-32) 05/14/22 13:21 MCHC 33 % (30-34) 05/14/22 13:21 RDW 21.2 % (13.2-15.2) H 05/14/22 13:21 Plt Count 155 K/mm3 (140-440) 05/14/22 13:21 Add Manual Diff Complete 05/14/22 13:21 Total Counted 50 05/14/22 13:21 Seg Neuts % (Manual) 60.0 % (40.0-70.0) 05/14/22 13:21 Band Neutrophils % 0 % 05/14/22 13:21 Lymphocytes % (Manual) 32.0 % (13.4-35.0) 05/14/22 13:21 Reactive Lymphs % (Man) 0 % 05/14/22 13:21 Monocytes % (Manual) 2.0 % (0.0-7.3) 05/14/22 13:21 Eosinophils % (Manual) 6.0 % (0.0-4.3) H 05/14/22 13:21 Basophils % (Manual) 0 % (0.0-1.8) 05/14/22 13:21 Metamyelocytes % 0 % 05/14/22 13:21 Myelocytes % 0 % 05/14/22 13:21 Promyelocytes % 0 % 05/14/22 13:21 Blast Cells % 0 % 05/14/22 13:21 Nucleated RBC % 2.0 % (0.0-0.9) H 05/14/22 13:21 Seg Neutrophils # Man 1.1 K/mm3 (1.8-7.7) L 05/14/22 13:21 Band Neutrophils # 0.0 K/mm3 05/14/22 13:21 Lymphocytes # (Manual) 0.6 K/mm3 (1.2-5.4) L 05/14/22 13:21 Abs React Lymphs (Man) 0.0 K/mm3 05/14/22 13:21 Monocytes # (Manual) 0.0 K/mm3 (0.0-0.8) 05/14/22 13:21 Eosinophils # (Manual) 0.1 K/mm3 (0.0-0.4) 05/14/22 13:21 Basophils # (Manual) 0.0 K/mm3 (0.0-0.1) 05/14/22 13:21 Metamyelocytes # 0.0 K/mm3 05/14/22 13:21 Myelocytes # 0.0 K/mm3 05/14/22 13:21 Promyelocytes # 0.0 K/mm3 05/14/22 13:21 Blast Cells # 0.0 K/mm3 05/14/22 13:21 WBC Morphology Not Reportable 05/14/22 13:21 Hypersegmented Neuts Not Reportable 05/14/22 13:21 Hyposegmented Neuts Not Reportable 05/14/22 13:21 Hypogranular Neuts Not Reportable 05/14/22 13:21 Smudge Cells Few 05/14/22 13:21 Toxic Granulation 1+ 05/14/22 13:21 Toxic Vacuolation Not Reportable 05/14/22 13:21 Dohle Bodies Not Reportable 05/14/22 13:21 Pelger-Huet Anomaly Not Reportable 05/14/22 13:21 Ciro Rods Not Reportable 05/14/22 13:21 Platelet Estimate Consistent w auto 05/14/22 13:21 Clumped Platelets Not Reportable 05/14/22 13:21 Plt Clumps, EDTA Not Reportable 05/14/22 13:21 Large Platelets Not Reportable 05/14/22 13:21 Giant Platelets Not Reportable 05/14/22 13:21 Platelet Satelliting Not Reportable 05/14/22 13:21 Plt Morphology Comment Not Reportable 05/14/22 13:21 RBC Morphology Not Reportable 05/14/22 13:21 Dimorphic RBCs Not Reportable 05/14/22 13:21 Polychromasia Not Reportable 05/14/22 13:21 Hypochromasia Not Reportable 05/14/22 13:21 Poikilocytosis Not Reportable 05/14/22 13:21 Anisocytosis 1+ 05/14/22 13:21 Microcytosis Not Reportable 05/14/22 13:21 Macrocytosis Not Reportable 05/14/22 13:21 Spherocytes Not Reportable 05/14/22 13:21 Pappenheimer Bodies Not Reportable 05/14/22 13:21 Sickle Cells Not Reportable 05/14/22 13:21 Target Cells Not Reportable 05/14/22 13:21 Tear Drop Cells Not Reportable 05/14/22 13:21 Ovalocytes Not Reportable 05/14/22 13:21 Helmet Cells Not Reportable 05/14/22 13:21 Squires-Grannis Bodies Not Reportable 05/14/22 13:21 [place] Rings Not Reportable 05/14/22 13:21 [place] Cells Not Reportable 05/14/22 13:21 Bite Cells Not Reportable 05/14/22 13:21 Crenated Cell Not Reportable 05/14/22 13:21 Elliptocytes Not Reportable 05/14/22 13:21 Acanthocytes (Spur) Not Reportable 05/14/22 13:21 Rouleaux Not Reportable 05/14/22 13:21 Hemoglobin C Crystals Not Reportable 05/14/22 13:21 Schistocytes Not Reportable 05/14/22 13:21 Malaria parasites Not Reportable 05/14/22 13:21 [place] Bodies Not Reportable 05/14/22 13:21 Hem Pathologist Commnt No 05/14/22 13:21 PT 14.6 Sec. (12.2-14.9) 05/14/22 13:21 INR 1.00 (0.87-1.13) 05/14/22 13:21 APTT 27.1 Sec. (24.2-36.6) 05/14/22 13:21 Sodium 140 mmol/L (137-145) 05/15/22 23:18 Potassium 3.3 mmol/L (3.6-5.0) L 05/15/22 23:18 Chloride 103.6 mmol/L (98-107) 05/15/22 23:18 Carbon Dioxide 28 mmol/L (22-30) 05/15/22 23:18 Anion Gap 12 mmol/L 05/15/22 23:18 BUN 11 mg/dL (7-17) 05/15/22 23:18 Creatinine 2.1 mg/dL (0.6-1.2) H 05/15/22 23:18 Estimated GFR 23 ml/min 05/15/22 23:18 BUN/Creatinine Ratio 5 % 05/15/22 23:18 Glucose 67 mg/dL (65-100) 05/15/22 23:18 POC Glucose 117 mg/dL (70-105) H 05/16/22 16:18 Calcium 8.1 mg/dL (8.4-10.2) L 05/15/22 23:18 Solorzano/IV: Voiding Method Incontinent Active Medications - Current Medications Current Medications: Generic Name Dose Route Start Last Admin Trade Name Freq PRN Reason Stop Dose Admin Acetaminophen 650 mg 05/14/22 15:00 Acetaminophen 325 Mg Tab PO Q4H PRN Pain MILD(1-3)/Fever >100.5/FRIAS Albuterol 2.5 mg 05/14/22 16:00 Albuterol 2.5 Mg/3 Ml Nebu IH Q4HRT PRN Shortness Of Breath Atorvastatin Calcium 40 mg 05/14/22 22:00 05/16/22 21:55 Atorvastatin 40 Mg Tab PO 40 mg QHS JARETH Administration Epoetin Nate-epbx 20,000 unit 05/15/22 14:00 05/16/22 14:15 Epoetin Nate-Epbx 10,000 Unit/1 Ml Vial IV 20,000 unit NICOLE PRN Administration Hemodialysis Folic Acid 2 mg 05/15/22 10:00 05/16/22 14:51 Folic Acid 1 Mg Tab PO 2 mg QDAY JARETH Administration Hydromorphone HCl 0.5 mg 05/14/22 15:00 Hydromorphone 0.5 Mg/0.5 Ml Inj IV Q13H PRN Pain , Severe (7-10) Sodium Chloride 100 mls @ 999 mls/hr 05/16/22 05:43 Nacl 0.9% IV NICOLE PRN Hypotension Metoprolol Tartrate 25 mg 05/14/22 22:00 05/16/22 21:57 Metoprolol Tartrate 25 Mg Tab PO 25 mg BID JARETH Administration Mirtazapine 7.5 mg 05/14/22 22:00 05/16/22 21:56 Mirtazapine 15 Mg Tab PO 7.5 mg QHS JARETH Administration Ondansetron HCl 4 mg 05/14/22 15:00 Ondansetron 4 Mg/2 Ml Inj IV Q8H PRN Nausea And Vomiting Oxycodone/Acetaminophen 1 tab 05/14/22 14:40 Oxycodone /Acetaminophen 5-325mg Tab PO Q6H PRN Pain, Moderate (4-6) Quetiapine Fumarate 12.5 mg 05/14/22 22:00 05/16/22 21:56 Quetiapine 25 Mg Tab PO 12.5 mg BID JARETH Administration Sodium Chloride 10 ml 05/14/22 22:00 05/16/22 21:57 Sodium Chloride 0.9% 10 Ml Flush Syringe IV 10 ml BID JARETH Administration Sodium Chloride 10 ml 05/14/22 15:00 Sodium Chloride 0.9% 10 Ml Flush Syringe IV PRN PRN LINE FLUSH Nutrition/Malnutrition Assess - Dietary Evaluation Nutrition/Malnutrition Findings: Nutrition Notes Start: 05/15/22 13:39 Freq: Status: Active Protocol: Document 05/15/22 13:39 CM (Rec: 05/15/22 13:42 CM [id number]) Co-Sign 05/15/22 13:39 WW Nutrition Notes 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 Weight Status Underweight Subjective/Other Information RD consult for skin risk assessment. Pt inappropriate for conversation at time of visit d/t AMS. RN reported there is no concern for integumentary system at this time - only has dry skin. No information regarding integumentary system per physical assessment. Burn Absent Trauma Absent GI Symptoms None Food Allergy No Skin Integrity/Comment WNL per RN Nutrition Intervention Change Diet Order: Pt diet to advance to renal diet when feasible. Follow-Up By: 05/20/22 Additional Comments Monitor diet advancement, wt status, and nutrition-related lab values.
[2022-05-17 20:47] VITALS: BP 132/48
[2022-05-17] MEDS: MIRTAZAPINE 15 MG TAB PO SCH (21:43)
== END 2022-05-17 23:04 | disposition home or self-care (01) | DRG 698 ==
LOC: ED 09:16 → 3A 14:40
PROVIDERS: ADMIT Internal Medicine; ATTEND Student in an Organized Health Care Education/Training Program
DX: T82.42XA Displacement of vascular dialysis catheter, initial encounter (principal); G93.41 Metabolic encephalopathy; N18.6 End stage renal disease; D61.818 Other pancytopenia; F01.50 Vascular dementia, unspecified severity, without behavioral disturbance, psychotic disturbance, mood disturbance, and anxiety; R53.81 Other malaise; I67.2 Cerebral atherosclerosis; Z99.2 Dependence on renal dialysis; I48.91 Unspecified atrial fibrillation; D64.9 Anemia, unspecified; D70.9 Neutropenia, unspecified; E78.5 Hyperlipidemia, unspecified; Z86.73 Personal history of transient ischemic attack (TIA), and cerebral infarction without residual deficits; Z82.49 Family history of ischemic heart disease and other diseases of the circulatory system; Z88.8 Allergy status to other drugs, medicaments and biological substances; Y84.8 Other medical procedures as the cause of abnormal reaction of the patient, or of later complication, without mention of misadventure at the time of the procedure; Y92.89 Other specified places as the place of occurrence of the external cause
CPT/HCPCS: 36415; 36558; 71045; 77001; 80048; 82962; 85007; 85025; 85610; 85730; 94640; 96372; 99285; G0378; J3490; C1750; C1751; C1769; J0885; J1200; J1644